=== PATIENT | female | born 1940 | race Caucasian/White ===

== ENCOUNTER 2017-01-02 02:11 | Inpatient (IN) | payer MEDICARE, BC ==
--- NOTE | 2017-01-02 05:39 | EDM.PDOC ---
ED HPI GENERAL MEDICAL PROBLEM - General Chief Complaint: General Stated Complaint: MEDICAL VIA NORTH Time Seen by Provider: 01/02/17 02:50 Source of Information: Reports: Patient History Limitations: Reports: No Limitations - History of Present Illness INITIAL COMMENTS - FREE TEXT/NARRATIVE: History of present illness: [76-year-old female presents with her and daughter with a history of progressive weakness over the last several months. She also has a history of M nire's disease. Last week they went to the [facility] and saw a physician that ordered an MRI which was done in the mid . on Monday. I have those results. This was done and ordered because of the progressive weakness and the desire for the family to not Y. this was happening and whether not she had had or was having mini strokes. She does have a history of an aneurysm that was coiled at the [facility]. She's had no fevers or chills cough or cold symptoms nausea vomiting constipation diarrhea or dysuria. The event that prompted her coming in a curb earlier this morning when she got up to go to the bathroom was having trouble and her daughter tried to assist her but her left leg was so weak that she couldn't bear weight and so her daughter just laid her down on the floor and called the ambulance. Her and daughter who have been trying to help her and care for her feel that in her present condition and weakness they can no longer safely do so at home.] Review of systems: As per history of present illness and below otherwise all systems reviewed and negative. Past medical history: As per history of present illness and as reviewed below otherwise noncontributory. Surgical history: As per history of present illness and as reviewed below otherwise noncontributory. Social history: No reported history of drug or alcohol abuse. Family history: As per history of present illness and as reviewed below otherwise noncontributory. Physical exam: HEENT: Atraumatic, normocephalic, pupils reactive, negative for conjunctival pallor or scleral icterus, mucous membranes moist, throat clear, neck supple, nontender, trachea midline. Lungs: Clear to auscultation, breath sounds equal bilaterally, chest nontender. Heart: S1S2, regular, negative for clicks, rubs, or JVD. Abdomen: Soft, nondistended, nontender. Negative for masses or hepatosplenomegaly. Negative for costovertebral tenderness. Pelvis: Stable nontender. Genitourinary: Deferred. Rectal: Deferred. Extremities: Atraumatic, negative for cords or calf pain. Neurovascular unremarkable. Neuro: Awake, alert, oriented. significant neuro exam is an upgoing Babinski of her left lower extremity. Her speech also seems cavity and the family reports that sometimes it is slurred but that is intermittent. she is able to lift her left leg off the bed as well as the right but the left one is weaker. She has no facial asymmetry and no pronator drift. Diagnostics: [the MRI report from Monday shows that there are punctate foci of diffusion restriction in the right basal ganglia, right periventricular white matter and within the anterior right temporal lobe compatible with acute/subacute infarcts. Also noted is the aneurysm coil in the left suprasellar region. I did do a head CT while she was here and nothing acute was discovered and no intracranial bleed. EKG shows a sinus rhythm with no current of ischemia or injury and a rate of 93.] Therapeutics: [] Impression: [recent CVA seen on MRI. Generalized weakness Acute left lower extremity weakness] Plan: [discussed with Dr. Arnett and we will admit her to the medical surgical floor and he'll come and see her shortly.] Definitive disposition and diagnosis as appropriate pending reevaluation and review of above. 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 Cardiovascular History: Reports: High Cholesterol, Hypertension Gastrointestinal History: Reports: Other (See Below) Other Gastrointestinal History: tubular adenoma of colon with mild dyplasia in 05/2011 ADJUNCT FACULTY History: Reports: Neurological History: Reports: Brain Injury, Other (See Below) Other Neuro History: minnear's anuerysm in brain. Coil behind l eye 2000 - Infectious Disease History Infectious Disease History: Reports: C-Difficile - Past Surgical History Oncologic Surgical History: Reports: Other (See Below) Other Oncologic Surgeries/Procedures: tubular adenoma of colon-with mild dyslasia in 05/2011 Social & Family History - Tobacco Use Smoking Status *Q: Former Smoker Years of Tobacco use: 30 Packs/Tins Daily: 0.5 Used Tobacco, but Quit: Yes Month Tobacco Last Used: December Tobacco Use Comment: Quit in 1996 Second Hand Smoke Exposure: No - Caffeine Use Caffeine Use: Reports: Coffee, Soda, Tea - Recreational Drug Use Recreational Drug Use: No ED ROS GENERAL - Review of Systems Review Of Systems: ROS reveals no pertinent complaints other than HPI. ED EXAM, GENERAL - Physical Exam Exam: See Below Course - Vital Signs Last Recorded V/S: Last Vital Signs Temp 36.5 C 01/02/17 02:24 Pulse 109 H 01/02/17 02:24 Resp 16 01/02/17 02:24 BP 166/94 H 01/02/17 02:24 Pulse Ox 94 L 01/02/17 02:24 - Orders/Labs/Meds Orders: Active Orders 24 hr Category Date Time Status Patient Status [ADT] Routine ADT 01/02/17 05:21 Ordered EKG Documentation Completion [RC] ASDIRECTED Care 01/02/17 03:04 Active Neuro Check [RC] Q2HR Care 01/02/17 05:30 Ordered Oxygen Therapy [RC] PRN Care 01/02/17 05:21 Ordered VTE/DVT Education [RC] Per Unit Routine Care 01/02/17 05:21 Ordered Vital Signs [RC] Q4H Care 01/02/17 05:21 Ordered Head wo Cont [CT] Stat Exams 01/02/17 03:48 Taken Dextrose 5%-1/2 Normal Saline @ 100 MLS/HR(1000ml) Med 01/02/17 05:45 Ordered Dextrose 5%-0.45% NaCl [Dextrose 5%-1/2 NS] 1,000 ml IV ASDIRECTED Resuscitation Status Routine Resus Stat 01/02/17 05:21 Ordered EKG 12 Lead [EK] Stat Ther 01/02/17 03:04 Ordered Labs: Laboratory Tests 01/02/17 01/02/17 01/02/17 Range/Units 03:04 03:04 03:04 WBC 8.8 (4.5-11.0) K/uL RBC 4.19 (3.30-5.50) M/uL Hgb 13.5 (12.0-15.0) g/dL Hct 40.7 (36.0-48.0) % MCV 97 (80-98) fL MCH 32 H (27-31) pg MCHC 33 (32-36) % Plt Count 347 (150-400) K/uL Neut % (Auto) 58 (36-66) % Lymph % (Auto) 28 (24-44) % [place] % (Auto) 11 H (2-6) % Eos % (Auto) 2 (2-4) % Baso % (Auto) 1 (0-1) % PT 10.2 (9.5-12.0) sec INR 0.96 (0.80-1.20) Sodium 139 L (140-148) mmol/L Potassium 4.1 (3.6-5.2) mmol/L Chloride 103 (100-108) mmol/L Carbon Dioxide 27 (21-32) mmol/L Anion Gap 13.1 (5.0-14.0) mmol/L BUN 23 H (7-18) mg/dL Creatinine 0.9 (0.6-1.0) mg/dL Est Cr Clr Drug Dosing 45.66 mL/min Estimated GFR (MDRD) > 60 (>60) Glucose 129 H (74-106) mg/dL Calcium 9.1 (8.5-10.1) mg/dL Total Bilirubin 0.4 (0.2-1.0) mg/dL AST 19 (15-37) U/L ALT 22 (12-78) U/L Alkaline Phosphatase 59 (46-116) U/L Troponin I < 0.017 (0.000-0.056) ng/mL Total Protein 7.4 (6.4-8.2) g/dL Albumin 3.5 (3.4-5.0) g/dL Globulin 3.9 H (2.3-3.5) g/dL Albumin/Globulin Ratio 0.9 L (1.2-2.2) TSH, Ultra Sensitive 1.969 (0.358-3.740) uIU/mL Urine Color Urine Appearance Urine pH (4.5-8.0) Ur Specific [place] (1.008-1.030) Urine Protein (NEGATIVE) mg/dL Urine Glucose (UA) (NEGATIVE) mg/dL Urine Ketones (NEGATIVE) mg/dL Urine Occult Blood (NEGATIVE) Urine Nitrite (NEGATIVE) Urine Bilirubin (NEGATIVE) Urine Urobilinogen (NORMAL) mg/dL Ur Leukocyte Esterase (NEGATIVE) Urine RBC (0-5) Urine WBC (0-5) Ur Epithelial Cells Amorphous Sediment Urine Bacteria Urine Mucus Urine Other 01/02/17 Range/Units 04:13 WBC (4.5-11.0) K/uL RBC (3.30-5.50) M/uL Hgb (12.0-15.0) g/dL Hct (36.0-48.0) % MCV (80-98) fL MCH (27-31) pg MCHC (32-36) % Plt Count (150-400) K/uL Neut % (Auto) (36-66) % Lymph % (Auto) (24-44) % [place] % (Auto) (2-6) % Eos % (Auto) (2-4) % Baso % (Auto) (0-1) % PT (9.5-12.0) sec INR (0.80-1.20) Sodium (140-148) mmol/L Potassium (3.6-5.2) mmol/L Chloride (100-108) mmol/L Carbon Dioxide (21-32) mmol/L Anion Gap (5.0-14.0) mmol/L BUN (7-18) mg/dL Creatinine (0.6-1.0) mg/dL Est Cr Clr Drug Dosing mL/min Estimated GFR (MDRD) (>60) Glucose (74-106) mg/dL Calcium (8.5-10.1) mg/dL Total Bilirubin (0.2-1.0) mg/dL AST (15-37) U/L ALT (12-78) U/L Alkaline Phosphatase (46-116) U/L Troponin I (0.000-0.056) ng/mL Total Protein (6.4-8.2) g/dL Albumin (3.4-5.0) g/dL Globulin (2.3-3.5) g/dL Albumin/Globulin Ratio (1.2-2.2) TSH, Ultra Sensitive (0.358-3.740) uIU/mL Urine Color Yellow Urine Appearance Cloudy Urine pH 5.0 (4.5-8.0) Ur Specific [place] 1.015 (1.008-1.030) Urine Protein Negative (NEGATIVE) mg/dL Urine Glucose (UA) Normal (NEGATIVE) mg/dL Urine Ketones Negative (NEGATIVE) mg/dL Urine Occult Blood Moderate (NEGATIVE) Urine Nitrite Negative (NEGATIVE) Urine Bilirubin Negative (NEGATIVE) Urine Urobilinogen Normal (NORMAL) mg/dL Ur Leukocyte Esterase Negative (NEGATIVE) Urine RBC 10-20 H (0-5) Urine WBC 0-5 (0-5) Ur Epithelial Cells Moderate Amorphous Sediment Few Urine Bacteria Few Urine Mucus Moderate Urine Other See note Departure - Departure Time of Disposition: 05:39 Disposition: Admitted As Inpatient 66 Condition: fair Clinical Impression: Generalized weakness, Weakness of left lower extremity CVA (cerebral vascular accident) Qualifiers: CVA mechanism: unspecified Qualified Code(s): I63.9 - Cerebral infarction, unspecified - Discharge Information Forms: ED Department Discharge - My Orders Last 24 Hours: My Active Orders 01/02/17 03:04 EKG Documentation Completion [RC] ASDIRECTED EKG 12 Lead [EK] Stat 01/02/17 03:48 Head wo Cont [CT] Stat 01/02/17 05:21 Patient Status [ADT] Routine Oxygen Therapy [RC] PRN VTE/DVT Education [RC] Per Unit Routine Vital Signs [RC] Q4H Resuscitation Status Routine 01/02/17 05:30 Neuro Check [RC] Q2HR 01/02/17 05:45 Dextrose 5%-1/2 Normal Saline @ 100 MLS/HR(1000ml) Dextrose 5%-0.45% NaCl [ Dextrose 5%-1/2 NS] 1,000 ml IV ASDIRECTED - Assessment/Plan Last 24 Hours: My Active Orders 01/02/17 03:04 EKG Documentation Completion [RC] ASDIRECTED EKG 12 Lead [EK] Stat 01/02/17 03:48 Head wo Cont [CT] Stat 01/02/17 05:21 Patient Status [ADT] Routine Oxygen Therapy [RC] PRN VTE/DVT Education [RC] Per Unit Routine Vital Signs [RC] Q4H Resuscitation Status Routine 01/02/17 05:30 Neuro Check [RC] Q2HR 01/02/17 05:45 Dextrose 5%-1/2 Normal Saline @ 100 MLS/HR(1000ml) Dextrose 5%-0.45% NaCl [ Dextrose 5%-1/2 NS] 1,000 ml IV ASDIRECTED
[2017-01-02] MEDS: Dextrose 5%-0.45% NaCl 1,000 ML IV SCH ×2 (06:21→17:27)
[2017-01-02] MEDS: Metoprolol Succinate 50 MG Tab.ER PO SCH (09:20)
[2017-01-02] MEDS: Aspirin 81 MG Tab.Chew PO SCH (09:20)
[2017-01-02] MEDS: Hydrochlorothiazide 25 MG Tab PO SCH (09:20)
--- NOTE | 2017-01-02 14:42 | US ---
Renal Comp INDICATION: microscopic hematuria FINDINGS: The right kidney measures 9.4 cm in length and the left kidney measures 10.7 cm in length. No evidence for mass or hydronephrosis. There is mild bilateral renal cortical thinning, measuring 1.0 cm in the right and 1.1 cm on the left. Survey views of the bladder are unremarkable. IMPRESSION: Mild bilateral renal cortical thinning.
--- NOTE | 2017-01-02 20:27 | HP ---
IDENTIFYING DATA: Ms. Gaby Espinal is a 76-year-old female from [place]. CHIEF COMPLAINT: Progressive weakness. HISTORY OF PRESENT ILLNESS: This elderly female was delivered to the emergency department by ambulance this evening at the request of family. They report an approximate 2-year history of progressive weakness as well as some cognitive slowing and periods of short-term memory loss this evening while attempting to rise and ambulate to the bathroom. She noted more significant weakness in the left leg and was assisted to the floor by family. She was unable to rise and ambulate, therefore emergency services were contacted. She does report a longstanding history of Meniere's disease. 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 She had no accompanying neurologic sequela. Recently with memory loss and developing weakness, she was seen by a local primary caregiver at the [facility]. Labs were drawn. She was notified she had an elevated cholesterol and was prescribed hydrochlorothiazide as well as atorvastatin. She has not yet initiated her pharmacologic therapy. Additionally, MR imaging of the head was obtained late last week. She had not yet received notification of findings, however, review at this time reveals multi-lacunar infarct changes described in the right basal ganglia, right periventricular white matter, and in the right temporal lobe, suggesting acute versus subacute infarct changes. She currently is ambulating independently with the use of a cane or a walker. She is having difficulty ascending and descending stairs, therefore family is in the process of building a single-level handicapped accessible home, and anticipates sale of their multilevel home. She currently does not drive. Family provides assistance with showering, dressing, and meal preparation. She has had no agitation, belligerent behavior, or personality changes reported. PAST MEDICAL HISTORY: Reported history of hypertension with previous use of antihypertensive therapies. PREVIOUS SURGERIES: Include total abdominal hysterectomy with bilateral salpingo- oophorectomy in the remote past for benign disease as well as bilateral cataract extraction, and placement of an intra-arterial coil for an intercerebral aneurysm previously noted. ALLERGIES: REPORTED TO AMOXICILLIN AND CEFRADINE. MEDICATIONS: None currently. Hydrochlorothiazide 1 tablet daily and atorvastatin 20 mg daily have been ordered but not yet initiated. HABITS: Nonsmoker. No current alcohol use. Remote history of tobacco use abstaining for greater than 30 years' time. Caffeine intake is typically nil. Drinking water with meals. SOCIAL HISTORY: She and her are retired. 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 Family including daughter and provide assistance as needed. FAMILY HISTORY: Denies familial history of COMPUTATIONAL CHEMIST disease, stroke, seizures, or recognized aneurysms. REVIEW OF SYSTEMS: NEUROLOGIC: No hearing loss. 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. No history of seizures or chronic headaches. CARDIAC: History of hypertension, reportedly hyperlipidemia, although not yet confirmed by lab. No history of documented ischemic heart disease, chest pain, palpitations, syncope, or congestive heart failure. RESPIRATORY: Denies asthma, emphysema, chronic cough, sputum production, or recent URIs. GI: Dyspeptic symptoms are managed with p.r.n. use of Gaviscon or Tums. No history of hepatitis, jaundice, melena, or hematochezia. Constipation requires p.r.n. use of MiraLAX and docusate. : Incontinent of urine. She does wear adult diapers. MUSCULOSKELETAL: Without complaints of arthralgias. PHYSICAL EXAMINATION: GENERAL: Appearance is that of an elderly female, resting comfortably in bed. VITAL SIGNS: Initial vitals, temperature 36.5 degrees centigrade, pulse 109 and regular, respiratory rate 16, blood pressure 166/94, O2 saturations 94% on room air. HEENT: Hearing is intact. Canals and TMs are normal. Extraocular eye movements are symmetrical and without nystagmus. She has no visual field deficits. No nasal congestion. Speech is slightly slurred. No asymmetries. No oropharyngeal lesions. Tongue protrudes midline. NECK: Brisk carotid pulses, radiating aortic murmur. No JVD, adenopathy, nuchal rigidity, or stridor. LUNGS: Clear and non-tachypneic. Symmetrical aeration. HEART: Regular without gallops. Grade 1 to 2 outflow murmur at the aortic area noted. ABDOMEN: Soft and nontender. No organomegaly. Active sounds. Good femoral pulses. No abdominal bruits. No CVA pain. AND RECTAL: Omitted. EXTREMITIES: Symmetrical strength in the upper and lower extremities. No tremor. Biceps and patellar DTRs are symmetrical. No ischemic skin changes. SKIN: Intact. LABORATORY DATA: On admission, WBC 8.8, hemoglobin 13.5, platelet count 347,000 with 58 segs, 28 lymphocytes, and 11 monos. INR within normal range at 0.96. Sodium 139, potassium 4.1, BUN 23, creatinine 0.9, glucose 129, calcium 9.1. Alkaline phosphatase 59, AST 19. Troponin less than 0.017. TSH of 1.97. Urinalysis 10-20 rbc's, 0-5 wbc's, few bacteria. IMPRESSIONS: 1. Presentation with increasing weakness, slowly progressive course of 2 years' time. Family note accompanying periods of confusion and short-term memory loss, more pronounced left leg weakness, now recovered. 2. History of hypertension. 3. Reported hyperlipidemia without therapy initiated. PLAN: The patient is admitted for ongoing supportive care and evaluation. Rehab assessment by PT, OT, and speech therapy services are requested. Incidentally note, family reports occasional coughing or choking with the ingestion of thin liquids. We will provide rehab services as indicated. Full code status is instituted as per request of the patient and family. We will provide bland diet as tolerated. In light of noted microscopic hematuria, renal ultrasound is requested. We will initiate pharmacologic therapies including aspirin, antiplatelet therapies, atorvastatin 20 mg daily, hydrochlorothiazide 25 mg daily, and metoprolol 50 mg daily for hypertensive presentation. Anticipate stay of less than 72 hours. Family is anticipating return home. They are agreeable to home care assistance if necessary. Silviano Arnett MD /[id number]
[2017-01-02] MEDS ORDERED: atorvaSTATin 20 MG Tab PO SCH (21:00)
[2017-01-03] MEDS: Dextrose 5%-0.45% NaCl 1,000 ML IV SCH (02:46)
[2017-01-03] MEDS: Aspirin 81 MG Tab.Chew PO SCH (09:19)
[2017-01-03] MEDS: Hydrochlorothiazide 25 MG Tab PO SCH (09:20)
[2017-01-03] MEDS: Metoprolol Succinate 50 MG Tab.ER PO SCH (09:20)
[2017-01-03 11:10] VITALS: BP 135/73
--- NOTE | 2017-01-03 11:59 | PCM.DCSUM1 ---
Discharge Summary - Hospital Course Brief History: Ms. Espinal is a 76-year-old woman who was admitted for further evaluation and management of subacute CVA. - Discharge Data Discharge Date: 01/03/17 Discharge Disposition: DC/Tfer to Inpt Rehab Fac 62 Condition: Fair - Discharge Diagnosis/Problem(s) (1) CVA (cerebral vascular accident) SNOMED Code(s): 684159604 ICD Code: I63.9 - CEREBRAL INFARCTION, UNSPECIFIED Status: Acute Current Visit: Yes Qualifiers: CVA mechanism: unspecified Qualified Code(s): I63.9 - Cerebral infarction, unspecified (2) Generalized weakness SNOMED Code(s): 63348438 ICD Code: R53.1 - WEAKNESS Status: Acute Current Visit: Yes - Patient Summary/Data Consults: Consultations 01/02/17 07:53 OT Evaluation and Treatment [CONS] Routine Please Evaluate and Treat. OT Reason for Consult: Strengthening This query below is only for informational purposes and is not editable. Admission Diagnosis/Problem: Weakness PT Evaluation and Treatment [CONS] Routine Please Evaluate and Treat. PT Reason for Consult: Strengthening This query below is only for informational purposes and is not editable. Admission Diagnosis/Problem: Weakness AUDITING SPECIALIST Evaluation and Treatment [CONS] Routine Please Evaluate and Treat AUDITING SPECIALIST Reason for Consult: Swallow This query below is only for informational purposes and is not editable. Admission Diagnosis/Problem: Weakness Hospital Course: Ms. Espinal has had a history of progressive decline over the past several months with increased weakness and progressive cognitive impairment. Family noted more progressive left leg weakness and she was brought in to the emergency department for further evaluation. Should recently been seen by her primary care provider and started on a statin as well as hydrochlorothiazide, at the time of admission had not started these medications. Previous MRI obtained within the past few days prior to admission showed evidence of several lacunar infarcts as well as evidence of atrophy and a subacute right CVA. CT scan obtained at the time of admission showed no acute abnormalities. She was admitted to the hospital and given IV fluids for hydration, started on aspirin, and seen by physical therapy. She was felt to be an appropriate candidate for acute rehabilitation and will be transferred there at the time of discharge. Activity will be as tolerated and she will be on a low-sodium diet. Follow-up appointment will be scheduled with her primary care provider in 2 weeks as well as a neurology consult for follow-up of her cerebral vascular disease. - Patient Instructions Diet: Low Sodium Activity: As Tolerated Other/Special Instructions: Discharge to acute rehabilitation facility, family will transport. Schedule follow-up appointment with primary care provider in 2 weeks. Schedule neurology consult for follow-up of CVA. - Discharge Plan Home Medications: Home Meds atorvaSTATin [Lipitor] 20 mg PO ONETIME 01/02/17 [History] Aspirin 81 mg PO DAILY tab.chew 01/03/17 [Rx] Metoprolol Succinate [Toprol XL] 50 mg PO DAILY tab.er 01/03/17 [Rx] - Patient Data Vitals - Most Recent: Last Vital Signs Temp 98.2 F 01/03/17 11:07 Pulse 77 01/03/17 11:07 Resp 20 01/03/17 11:07 BP 135/73 01/03/17 11:07 Pulse Ox 97 01/03/17 11:07 Weight - Most Recent: 186 lb 6.413 oz I&O - Last 24 hours: Intake & Output 01/02/17 01/03/17 01/03/17 22:59 06:59 14:59 Intake Total 1102 320 Balance 1102 320 Med Orders - Current: Current Medications Aspirin (Aspirin) 81 mg PO DAILY [facility] Last Admin: 01/03/17 09:19 Dose: 81 mg Atorvastatin Calcium (Lipitor) 20 mg PO BEDTIME [facility] Last Admin: 01/02/17 20:07 Dose: 20 mg Hydrochlorothiazide (Hydrochlorothiazide) 25 mg PO DAILY [facility] Last Admin: 01/03/17 09:20 Dose: 25 mg Dextrose/Sodium Chloride (Dextrose 5%-1/2 Ns) 1,000 mls @ 100 mls/hr IV ASDIRECTED [facility] Last Admin: 01/03/17 02:46 Dose: 100 mls/hr Metoprolol Succinate (Toprol Xl) 50 mg PO DAILY [facility] Last Admin: 01/03/17 09:20 Dose: 50 mg *Q Meaningful Use (DIS) - VTE *Q VTE Criteria *Q: - Stroke *Q Stroke Criteria *Q: - AMI *Q AMI Criteria *Q:
== END 2017-01-03 13:58 | DRG 66 ==
LOC: JP.ED 02:11 → JP.MS 05:21
PROVIDERS: ADMIT Family Medicine; ATTEND Hospitalist
DX: I63.9 Cerebral infarction, unspecified (principal); R53.1 Weakness; I10 Essential (primary) hypertension; R31.29 Other microscopic hematuria; Z87.891 Personal history of nicotine dependence; H54.7 Unspecified visual loss; H81.09 Meniere's disease, unspecified ear; E78.5 Hyperlipidemia, unspecified; Z79.82 Long term (current) use of aspirin; Z88.1 Allergy status to other antibiotic agents; H91.92 Unspecified hearing loss, left ear; I72.8 Aneurysm of other specified arteries
CPT/HCPCS: 36415; 70450; 76770; 76770-26; 80053; 81001; 84443; 84484; 85025; 85610; 92610-GN; 93005; 93010; 97116-GP; 97162-GP; 97166-GO; 99284; 99285-25; A9270-GY

== ENCOUNTER 2017-05-02 10:32 | Inpatient (IN) | payer MEDICARE, BC ==
--- NOTE | 2017-05-02 11:12 | EDM.PDOC ---
ED HPI GENERAL MEDICAL PROBLEM - General Chief Complaint: Back Pain or Injury Stated Complaint: FALL VIA [place]TH Time Seen by Provider: 05/02/17 10:50 Source of Information: Reports: Patient, EMS, Family History Limitations: Reports: No Limitations - History of Present Illness INITIAL COMMENTS - FREE TEXT/NARRATIVE: 77-year-old female who had a CVA earlier this summer lost her balance and stumbled backwards landing on her sacral area and lower back. She has significant discomfort upper mid lumbar spine. She was able to get up with assistance but was so tender they wanted her evaluated, home health called the ambulance. No lower extremity symptoms, head injury or other complaints. Quality: Reports: Ache, Stabbing Severity: Moderate Worsens with: Reports: Movement Associated Symptoms: Reports: No Other Symptoms Lower Back Pain Score (Numeric/FACES): 2 - Related Data Allergies Allergy/AdvReac Type Severity Reaction Status Date / Time amoxicillin Allergy Rash Verified 01/02/17 02:27 cephradine Allergy Rash Verified 01/02/17 02:27 Home Meds: Home Meds atorvaSTATin [Lipitor] 20 mg PO ONETIME 01/02/17 [History] Aspirin 81 mg PO DAILY tab.chew 01/03/17 [Rx] Metoprolol Succinate [Toprol XL] 50 mg PO DAILY tab.er 01/03/17 [Rx] Carbidopa/Levodopa [Sinemet 25-100 mg Tablet] 1 tab PO QID 05/02/17 [History] Cholecalciferol (Vitamin D3) [Vitamin D] 2,000 unit PO DAILY 05/02/17 [History] Omeprazole 20 mg PO BIDAC 05/02/17 [History] Past Medical History HEENT History: Reports: Impaired Vision, Other (See Below) 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 Psychiatric History: Reports: None Endocrine/Metabolic History: Reports: None Hematologic History: Reports: None Immunologic History: Reports: None Dermatologic History: Reports: None - Infectious Disease History Infectious Disease History: Reports: Chicken Pox, Measles, Mumps - Past Surgical History Head Surgeries/Procedures: Reports: None HEENT Surgical History: Reports: Eye Surgery GI Surgical History: Reports: Colonoscopy Female Surgical History: Reports: Hysterectomy, Oophorectomy Oncologic Surgical History: Reports: Other (See Below) Other Oncologic Surgeries/Procedures: tubular adenoma of colon-with mild dyslasia in 05/2011 Social & Family History - Tobacco Use Smoking Status *Q: Never Smoker Years of Tobacco use: 30 Packs/Tins Daily: 0.5 Used Tobacco, but Quit: No Month Tobacco Last Used: December Second Hand Smoke Exposure: No - Caffeine Use Caffeine Use: Reports: None - Recreational Drug Use Recreational Drug Use: No ED ROS GENERAL - Review of Systems Review Of Systems: See Below Constitutional: Denies: Fever, Chills Respiratory: Denies: Shortness of Breath Cardiovascular: Denies: Chest Pain GI/Abdominal: Denies: Abdominal Pain, Nausea, Vomiting : Reports: Incontinence (Not a new symptom) Neurological: Reports: Other (Has some fairly significant persistent weakness secondary to the stroke earlier this year) ED EXAM,LOWER BACK PAIN/INJURY - Physical Exam Exam: See Below Exam Limited By: No Limitations General Appearance: Alert, No Apparent Distress Eye Exam: Bilateral Eye: EOMI Respiratory/Chest: No Respiratory Distress, Lungs Clear GI/Abdominal: Soft, Non-Tender Back Exam: Other (Patient was log rolled in the lower back and sacral area looks normal on gross exam. On palpation and percussion she reacts with tenderness over L2 to L4, no pain over the sacrum or pelvis area) Course - Vital Signs Last Recorded V/S: Last Vital Signs Temp 96.6 F 05/02/17 13:54 Pulse 59 L 05/02/17 13:54 Resp 16 05/02/17 13:54 BP 138/59 L 05/02/17 13:54 Pulse Ox 98 05/02/17 13:54 - Orders/Labs/Meds Orders: Active Orders 24 hr Category Date Time Status Sodium Chloride 0.9% [Saline Flush] Med 05/02/17 12:30 Active 10 ml FLUSH ASDIRECTED PRN Peripheral IV Insertion Adult [OM.PC] Routine Oth 05/02/17 12:30 Ordered Medication Orders Acetaminophen (Tylenol Extra Strength) 1,000 mg PO TID SWATHI Aspirin (Aspirin) 81 mg PO DAILY [facility] Atorvastatin Calcium (Lipitor) 20 mg PO BEDTIME [facility] Calcitonin [place] (Miacalcin Nasal [place]) 1 ml VEENA DAILY [facility] Carbidopa/Levodopa (Sinemet 25-100 Mg) 1 tab PO QID [facility] Hydromorphone HCl (Dilaudid) 0.25 - 0.5 mg IVPUSH Q2H PRN PRN Reason: Pain (severe 7-10) Ibuprofen (Motrin) 600 mg PO Q6H PRN PRN Reason: Pain/Fever Influenza Virus Vaccine (Fluzone High-Dose ) 180 mcg IM .ONCE ONE Stop: 05/03/17 16:01 Metoprolol Succinate (Toprol Xl) 50 mg PO DAILY [facility] Ondansetron HCl (Zofran Odt) 4 mg PO Q6H PRN PRN Reason: Nausea able to take PO Oxycodone HCl (Oxycodone) 5 - 10 mg PO Q4H PRN PRN Reason: Pain (moderate 4-6) Pantoprazole Sodium (Protonix) 40 mg PO ACBREAKFAST [facility] Polyethylene Glycol (Miralax) 17 gm PO DAILY PRN PRN Reason: Constipation Senna/Docusate Sodium (Senna Plus) 1 tab PO BID PRN PRN Reason: Constipation Sodium Chloride (Saline Flush) 10 ml FLUSH ASDIRECTED PRN PRN Reason: Keep Vein Open Last Admin: 05/02/17 12:43 Dose: 10 ml Admin: 05/02/17 12:41 Dose: 10 ml Meds: Medications Generic Name Dose Route Start Last Admin Trade Name Freq PRN Reason Stop Dose Admin Acetaminophen 1,000 mg 05/02/17 14:00 Tylenol Extra Strength PO TID [facility] Aspirin 81 mg 05/03/17 09:00 Aspirin PO DAILY [facility] Atorvastatin Calcium 20 mg 05/02/17 21:00 Lipitor PO BEDTIME [facility] Calcitonin [place] 1 ml 05/02/17 16:00 Miacalcin Nasal [place] VEENA DAILY [facility] Carbidopa/Levodopa 1 tab 05/02/17 16:00 Sinemet 25-100 Mg PO QID [facility] Hydromorphone HCl 0.25 - 0.5 mg 05/02/17 13:28 Dilaudid IVPUSH Q2H PRN Pain (severe 7-10) Ibuprofen 600 mg 05/02/17 13:28 Motrin PO Q6H PRN Pain/Fever Influenza Virus Vaccine 180 mcg 05/03/17 16:00 Fluzone High-Dose 2017-18 IM 05/03/17 16:01 .ONCE ONE Metoprolol Succinate 50 mg 05/03/17 09:00 Toprol Xl PO DAILY SWATHI Ondansetron HCl 4 mg 05/02/17 13:28 Zofran Odt PO Q6H PRN Nausea able to take PO Oxycodone HCl 5 - 10 mg 05/02/17 13:28 Oxycodone PO Q4H PRN Pain (moderate 4-6) Pantoprazole Sodium 40 mg 05/03/17 07:30 Protonix PO ACBREAKFAST SWATHI Polyethylene Glycol 17 gm 05/02/17 13:28 Miralax PO DAILY PRN Constipation Senna/Docusate Sodium 1 tab 05/02/17 13:28 Senna Plus PO BID PRN Constipation Sodium Chloride 10 ml 05/02/17 12:30 05/02/17 12:43 Saline Flush FLUSH 10 ml ASDIRECTED PRN Administration Keep Vein Open Discontinued Medications Generic Name Dose Route Start Last Admin Trade Name Freq PRN Reason Stop Dose Admin Hydrocodone Bitart/Acetaminophen 1 tab 05/02/17 11:36 05/02/17 11:45 [place] 325-10 Mg PO 05/02/17 11:37 1 tab ONETIME ONE Administration Ketorolac Tromethamine 30 mg 05/02/17 12:31 05/02/17 12:40 Toradol IVPUSH 05/02/17 12:32 30 mg ONETIME ONE Administration - Re-Assessments/Exams Free Text/Narrative Re-Assessment/Exam: 05/02/17 11:11 With him on her discomfort the patient is having, and the amount of reassurance the family needs after her stroke the patient will have a lumbar spine CT to look for subtle or compression fractures. 05/02/17 11:37 CT scan confirmed an L1 compression fracture which correlates with her pain. She was able to stand with assistance and walk with a walker although it was uncomfortable. She really wants to go home. She was given a 10 mg hydrocodone orally, along with an instymed for 20 additional 5 mg [place] doses to take one every 3-4 hours. She is to increase activity as tolerated and return if not managing at home. I also think a recheck in 5-10 days with her primary care to discuss possible physical therapy or other methods of treatment. 05/02/17 12:05 Patient attempted to go home but her symptoms were to significant and the family decided they wanted her to stay for inpatient treatment. I called Dr. Erwin and he agreed to see her to consider admission to the hospitalist service for pain control and physical therapy evaluation. Departure - Departure Time of Disposition: 13:48 Disposition: Admitted As Inpatient 67 Condition: Fair Clinical Impression: Compression fx, lumbar spine Qualifiers: Encounter type: initial encounter Lumbar vertebra fracture level: L1 Fracture type: closed Qualified Code(s): S32.010A - Wedge compression fracture of first lumbar vertebra, initial encounter for closed fracture - Discharge Information
--- NOTE | 2017-05-02 11:21 | CT ---
Lumbar spine CT. History: Fall. Pain. Technique: Axial images were obtained through the lumbar spine. Sagittal and coronal images were sabine nstructed. Total DLP: 816. Findings: There is a compression fracture of L1. There is approximately 10% vertebral height loss. Th ere are no retropulsed fragments. There are no prior studies to assess for chronicity. An acute injur y cannot be excluded. There are no additional compressions. There is grade 1 spondylolisthesis at L4/5. There is a annular disc bulge and facet arthropathy. Mode rate bilateral foraminal stenosis is demonstrated. Impression: 1. L1 compression fracture of indeterminate age. If there is localized pain the finding is likely acu te. 2. L4/5 spondylolisthesis with degenerative facet arthropathy. There is moderate bilateral foraminal stenosis.
[2017-05-02] MEDS ORDERED: Acetaminophen/HYDROcodone 325-10 MG Tab PO ONE (11:36)
[2017-05-02] MEDS ORDERED: Ketorolac 30 MG/ML SDV IVPUSH ONE (12:31)
[2017-05-02] MEDS: Sodium Chloride 0.9% 10 ML Syringe FLUSH PRN ×2 (12:41→12:43)
--- NOTE | 2017-05-02 12:49 | PCM.HP ---
H&P History of Present Illness - General Date of Service: 05/02/17 Admit Problem/Dx: Admission Diagnosis/Problem Admission Diagnosis/Problem Compression fracture of L1 lumbar vertebra Source of Information: Patient, Family, Provider History Limitations: Reports: No Limitations - History of Present Illness Initial Comments - Free Text/Narative: Gaby presents to the emergency room today with acute lower back pain. She reports that she stumbled and fell landing on her on X resulting in immediate and severe lower back pain. She describes this as an achy pain that radiates throughout her lower back but does not radiate down the legs. Pain is worse with any movement and better with rest. Pain medication in the emergency room has not provided much benefit though the pain is somewhat less intense than when the incident initially occurred. She is able to wiggle her toes and does not have paresthesias of either lower extremity. She has felt like her usual self recently with no fevers, no abdominal pain, no shortness of breath. She has been getting around without a walker or cane recently. Workup in the emergency room revealed a 10% compression fracture of L1. The patient was not able to ambulate without severe pain and will be admitted for pain control. Lower Back Pain Score (Numeric/FACES): 2 - Related Data Allergies/Adverse Reactions: Allergies Allergy/AdvReac Type Severity Reaction Status Date / Time amoxicillin Allergy Rash Verified 01/02/17 02:27 cephradine Allergy Rash Verified 01/02/17 02:27 Home Medications: Home Meds atorvaSTATin [Lipitor] 20 mg PO ONETIME 01/02/17 [History] Aspirin 81 mg PO DAILY tab.chew 01/03/17 [Rx] Metoprolol Succinate [Toprol XL] 50 mg PO DAILY tab.er 01/03/17 [Rx] Carbidopa/Levodopa [Sinemet 25-100 mg Tablet] 1 tab PO QID 05/02/17 [History] Cholecalciferol (Vitamin D3) [Vitamin D] 2,000 unit PO DAILY 05/02/17 [History] Omeprazole 20 mg PO BIDAC 05/02/17 [History] Past Medical History HEENT History: Reports: Impaired Vision, Other (See Below) 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 Psychiatric History: Reports: None Endocrine/Metabolic History: Reports: None Hematologic History: Reports: None Immunologic History: Reports: None Dermatologic History: Reports: None - Infectious Disease History Infectious Disease History: Reports: Chicken Pox, Measles, Mumps - Past Surgical History Head Surgeries/Procedures: Reports: None HEENT Surgical History: Reports: Eye Surgery GI Surgical History: Reports: Colonoscopy Female Surgical History: Reports: Hysterectomy, Oophorectomy Oncologic Surgical History: Reports: Other (See Below) Other Oncologic Surgeries/Procedures: tubular adenoma of colon-with mild dyslasia in 05/2011 Social & Family History - Family History Cardiac: Denies: CAD - Tobacco Use Smoking Status *Q: Never Smoker Years of Tobacco use: 30 Packs/Tins Daily: 0.5 Used Tobacco, but Quit: No Month Tobacco Last Used: December Second Hand Smoke Exposure: No - Caffeine Use Caffeine Use: Reports: None - Alcohol Use Alcohol Use History: No - Recreational Drug Use Recreational Drug Use: No H&P Review of Systems - Review of Systems: Review Of Systems: See Below Free Text/Narrative: A complete 12 point review of systems was obtained. Pertinent positives and negatives are noted in the history of present illness. All other systems were reviewed and were negative except as noted. Exam - Exam Exam: See Below - Vital Signs Vital Signs: Last Vital Signs Temp 36.2 C 05/02/17 10:43 Pulse 65 05/02/17 10:43 Resp 20 05/02/17 10:43 BP 126/79 05/02/17 10:43 Pulse Ox 96 05/02/17 10:43 Weight: 77.111 kg - Exam Quality Assessment: No: Supplemental Oxygen General: Alert, Oriented, Cooperative. No: Mild Distress HEENT: Conjunctiva Clear, Mucosa Moist & [place]. No: Scleral Icterus Neck: Supple, Trachea Midline. No: Lymphadenopathy Lungs: Clear to Auscultation, Normal Respiratory Effort Cardiovascular: Regular Rate, Regular Rhythm. No: Systolic Murmur GI/Abdominal Exam: Soft, Non-Tender, No Distention Back Exam: Normal Inspection, Paraspinal Tenderness (left lumbar), Vertebral Tenderness Extremities: No Pedal Edema. No: Increased Warmth Peripheral Pulses: 2+: Dorsalis Pedis (L), Dorsalis Pedis (R) Skin: Warm, Dry Neuro Extensive - Mental Status: Alert, Oriented x3, Nl Response to Commands Neuro Extensive - Motor, Sensory, Reflexes: CN II-XII Intact, Expressive Aphasia (mild), Abnormal Motor (mild left sided weakness). No: Dysarthria, Tremor Psychiatric: Alert, Normal Affect - Patient Data Imaging Impressions Last 24 hrs: Lumbar CT - images personally reviewed - there is a 10% compression fracture of L1 with displaced fragments. No other acute findings. *Q Meaningful Use (ADM) - VTE *Q VTE Criteria *Q: - VTE Risk Assess *Q Each Risk Factor Represents 1 Point: None Total Score 1 Point Risk Factors: 0 Each Risk Factor Represents 2 Points: None Total Score 2 Point Risk Factors: 0 Each Risk Factor Represents 3 Points: Age 75 Years or Greater Total Score 3 Point Risk Factors: 3 Each Risk Factor Represents 5 Points: None Total Score 5 Point Risk Factors: 0 Venous Thromboembolism Risk Factor Score *Q: 3 - Stroke *Q Stroke Criteria *Q: - AMI *Q AMI Criteria *Q: - Problem List (1) Compression fracture of L1 lumbar vertebra SNOMED Code(s): 253515520 ICD Code: S32.010A - WEDGE COMPRESSION FRACTURE OF FIRST LUMBAR VERTEBRA, INIT Status: Acute Current Visit: Yes Qualifiers: Encounter type: initial encounter (2) Acute back pain SNOMED Code(s): 627679197 ICD Code: M54.9 - DORSALGIA, UNSPECIFIED Status: Acute Current Visit: Yes Qualifiers: Back pain location: low back pain Back pain laterality: bilateral Sciatica presence: without sciatica Qualified Code(s): M54.5 - Low back pain (3) Cerebrovascular disease SNOMED Code(s): 29344235 ICD Code: I67.9 - CEREBROVASCULAR DISEASE, UNSPECIFIED Status: Acute Current Visit: Yes Problem List Initiated/Reviewed/Updated: Yes Orders Last 24hrs: Active Orders 24 hr Category Date Time Status Patient Status Manage Transfer [TRANSFER] Routine ADT 05/02/17 12:32 Ordered Peripheral IV Care [RC] . DIRECTED Care 05/02/17 12:30 Active Sodium Chloride 0.9% [Saline Flush] Med 05/02/17 12:30 Active 10 ml FLUSH ASDIRECTED PRN Peripheral IV Insertion Adult [OM.PC] Routine Oth 05/02/17 12:30 Ordered Resuscitation Status Routine Resus Stat 05/02/17 12:34 Ordered Medication Orders Sodium Chloride (Saline Flush) 10 ml FLUSH ASDIRECTED PRN PRN Reason: Keep Vein Open Last Admin: 05/02/17 12:43 Dose: 10 ml Admin: 05/02/17 12:41 Dose: 10 ml Assessment/Plan Comment:: Assessment and plan - Acute lower back pain with L1 compression fracture - mild loss of height but acute pain. Not able to ambulate which is probably complicated by her cerebrovascular disease and residual left-sided deficits. Not safe for outpatient management at this time. -Scheduled acetaminophen -As needed oxycodone -As needed ibuprofen -Calcitonin daily -Ice pack 4 times a day -Physical therapy evaluation Cerebrovascular disease - Patient suffered an ischemic stroke in December of this year and has some residual left-sided weakness. This will complicate her rehabilitation and recovery from the compression fracture as above. -Continue medical management Maintenance issues - - DVT prophylaxis - mechanical - GI prophylaxis - PPI - Nutrition - mechanical soft with thickened liquids - [place] catheter - not indicated CODE STATUS - patient wishes to be DO NOT RESUSCITATE but is okay with temporary intubation Admission justification - This patient will be admitted for inpatient services and is medically appropriate meeting medical necessity for inpatient admission as outlined in my documentation. I reasonably expect the patient will require inpatient services that span a period time over 2 midnights. I reasonably expect this patient to be discharged or transferred within 96 hours [facility] I suspect that the recovery from the compression fracture will be hampered by her residual deficits from the stroke and will require 2 or more days to provide enough improvement for her to be safe for outpatient management. Disposition - anticipate discharge to home, possibly with home health care after the hospital stay Primary care physician - Dr Melquiades Erwin M.D.
[2017-05-02] MEDS ORDERED: HYDROmorphone 0.5 MG/0.5 ML Syringe IVPUSH PRN (13:28)
[2017-05-02] MEDS ORDERED: Polyethylene Glycol 3350 Powder 17 GM Packet PO PRN (13:28)
[2017-05-02] MEDS ORDERED: Ondansetron 4 MG Tab.DIS PO PRN (13:28)
[2017-05-02] MEDS ORDERED: Ibuprofen 600 MG Tab PO PRN (13:28)
[2017-05-02] MEDS: Acetaminophen 500 MG Tab PO SCH ×2 (14:54→20:37)
[2017-05-02] MEDS: Carbidopa/Levodopa 25-100 MG Tab PO SCH ×2 (16:24→21:16)
[2017-05-02] MEDS: Calcitonin (Salmon) Nasal Spray 3.7 ML Bottle NAS SCH (16:31)
[2017-05-02] MEDS: oxyCODONE 5 MG Tab PO PRN (16:39)
[2017-05-02] MEDS: atorvaSTATin 20 MG Tab PO SCH (20:41)
[2017-05-03] MEDS: oxyCODONE 5 MG Tab PO PRN ×2 (05:44→18:19)
[2017-05-03] MEDS: Carbidopa/Levodopa 25-100 MG Tab PO SCH ×4 (05:46→21:12)
[2017-05-03] MEDS: Pantoprazole 40 MG Tab.CR PO SCH (07:23)
[2017-05-03] MEDS: Acetaminophen 500 MG Tab PO SCH ×3 (09:10→20:01)
[2017-05-03] MEDS: Aspirin 81 MG Tab.Chew PO SCH (09:10)
[2017-05-03] MEDS: Calcitonin (Salmon) Nasal Spray 3.7 ML Bottle NAS SCH (09:10)
[2017-05-03] MEDS: Metoprolol Succinate 50 MG Tab.ER PO SCH (09:11)
--- NOTE | 2017-05-03 11:02 | PCM.PN ---
- General Info Date of Service: 05/03/17 Functional Status: Reports: Pain Controlled, Ambulating - Review of Systems General: Reports: Weakness Musculoskeletal: Reports: Back Pain Systems Review Comment:: No acute events overnight. Back pain has been better controlled and for the most part has been controlled with scheduled acetaminophen. She has used some as needed oxycodone. She has not had any fevers and does not report shortness of breath or abdominal pain. She requires the assist of 2 people to get up and down when getting out and into bed. At this point I don't believe that she has reached a point where she safe for outpatient management but has improved since yesterday. Her is worried about navigating 3 steps into the house in her current state and does not think that he is capable of providing enough care by himself at this time. - Patient Data Vitals - Most Recent: Last Vital Signs Temp 36.2 C 05/03/17 07:13 Pulse 65 05/03/17 09:11 Resp 16 05/03/17 07:13 BP 124/56 L 05/03/17 09:11 Pulse Ox 94 L 05/03/17 07:13 Weight - Most Recent: 79.968 kg I&O - Last 24 Hours: Intake & Output 05/02/17 05/03/17 05/03/17 22:59 06:59 14:59 Intake Total 120 120 180 Balance 120 120 180 Med Orders - Current: Current Medications Acetaminophen (Tylenol Extra Strength) 1,000 mg PO TID [facility] Last Admin: 05/03/17 09:10 Dose: 1,000 mg Aspirin (Aspirin) 81 mg PO DAILY [facility] Last Admin: 05/03/17 09:10 Dose: 81 mg Atorvastatin Calcium (Lipitor) 20 mg PO BEDTIME [facility] Last Admin: 05/02/17 20:41 Dose: 20 mg Calcitonin [place] (Miacalcin Nasal [place]) 1 ml VEENA DAILY [facility] Last Admin: 05/03/17 09:10 Dose: 1 spray Carbidopa/Levodopa (Sinemet 25-100 Mg) 1 tab PO QID [facility] Last Admin: 05/03/17 09:10 Dose: 1 tab Hydromorphone HCl (Dilaudid) 0.25 - 0.5 mg IVPUSH Q2H PRN PRN Reason: Pain (severe 7-10) Ibuprofen (Motrin) 600 mg PO Q6H PRN PRN Reason: Pain/Fever Influenza Virus Vaccine (Fluzone High-Dose 2017-) 180 mcg IM .ONCE ONE Stop: 05/03/17 16:01 Metoprolol Succinate (Toprol Xl) 50 mg PO DAILY [facility] Last Admin: 05/03/17 09:11 Dose: 50 mg Ondansetron HCl (Zofran Odt) 4 mg PO Q6H PRN PRN Reason: Nausea able to take PO Oxycodone HCl (Oxycodone) 5 - 10 mg PO Q4H PRN PRN Reason: Pain (moderate 4-6) Last Admin: 05/03/17 05:44 Dose: 10 mg Pantoprazole Sodium (Protonix) 40 mg PO ACBREAKFAST [facility] Last Admin: 05/03/17 07:23 Dose: 40 mg Polyethylene Glycol (Miralax) 17 gm PO DAILY PRN PRN Reason: Constipation Senna/Docusate Sodium (Senna Plus) 1 tab PO BID PRN PRN Reason: Constipation Last Admin: 05/03/17 10:32 Dose: 1 tab Sodium Chloride (Saline Flush) 10 ml FLUSH ASDIRECTED PRN PRN Reason: Keep Vein Open Last Admin: 05/02/17 12:43 Dose: 10 ml Discontinued Medications Hydrocodone Bitart/Acetaminophen ([place] 325-10 Mg) 1 tab PO ONETIME ONE Stop: 05/02/17 11:37 Last Admin: 05/02/17 11:45 Dose: 1 tab Ketorolac Tromethamine (Toradol) 30 mg IVPUSH ONETIME ONE Stop: 05/02/17 12:32 Last Admin: 05/02/17 12:40 Dose: 30 mg - Exam Quality Assessment: No: Supplemental Oxygen General: Alert, Oriented, Cooperative, No Acute Distress Neck: Supple Lungs: Normal Respiratory Effort GI/Abdominal Exam: Soft, No Distention Extremities: No Pedal Edema Psy/Mental Status: Alert, Normal Affect - Problem List & Annotations (1) Compression fracture of L1 lumbar vertebra SNOMED Code(s): 725634190 Code(s): S32.010A - WEDGE COMPRESSION FRACTURE OF FIRST LUMBAR VERTEBRA, INIT Status: Acute Current Visit: Yes Qualifiers: Encounter type: initial encounter (2) Acute back pain SNOMED Code(s): 939685514 Code(s): M54.9 - DORSALGIA, UNSPECIFIED Status: Acute Current Visit: Yes Qualifiers: Back pain location: low back pain Back pain laterality: bilateral Sciatica presence: without sciatica Qualified Code(s): M54.5 - Low back pain (3) Cerebrovascular disease SNOMED Code(s): 24060995 Code(s): I67.9 - CEREBROVASCULAR DISEASE, UNSPECIFIED Status: Chronic Current Visit: Yes - Problem List Review Problem List Initiated/Reviewed/Updated: Yes - My Orders Last 24 Hours: My Active Orders 05/02/17 12:34 Resuscitation Status Routine 05/02/17 13:28 Patient Status [ADT] Routine May Shower [RC] DAILY Notify Provider Vital Signs [RC] ASDIRECTED Oxygen Therapy [RC] PRN Up With Assistance [RC] ASDIRECTED Up to Chair [RC] QID VTE/DVT Education [RC] Per Unit Routine Vital Signs [RC] Q4H PT Evaluation and Treatment [CONS] Routine Docusate Sodium/Sennosides [Senna Plus] 1 tab PO BID PRN HYDROmorphone [Dilaudid] 0.25 - 0.5 mg IVPUSH Q2H PRN Ibuprofen [Motrin] 600 mg PO Q6H PRN Ondansetron [Zofran ODT] 4 mg PO Q6H PRN Polyethylene Glycol 3350 [MiraLAX] 17 gm PO DAILY PRN oxyCODONE 5 - 10 mg PO Q4H PRN Ice Therapy [OM.PC] QID Sequential Compression Device [OM.PC] Per Unit Routine 05/02/17 14:00 Acetaminophen [Tylenol Extra Strength] 1,000 mg PO TID 05/02/17 16:00 Calcitonin ([place]) [Miacalcin Nasal [place]] 1 ml VEENA DAILY Carbidopa/Levodopa [Sinemet 25-100 mg] 1 tab PO QID 05/02/17 21:00 atorvaSTATin [Lipitor] 20 mg PO BEDTIME 05/02/17 Dinner Regular Diet [DIET] Thickened Liquids [DIET] 05/03/17 07:30 Pantoprazole [ProTONIX] 40 mg PO ACBREAKFAST 05/03/17 09:00 Aspirin 81 mg PO DAILY Metoprolol Succinate [Toprol XL] 50 mg PO DAILY 05/03/17 13:28 Ice Therapy [OM.PC] QID 05/03/17 16:00 FLU Vacc [id number](65YR UP)/PF [Fluzone High-Dose ] 180 mcg IM .ONCE ONE 05/04/17 13:28 Ice Therapy [OM.PC] QID 05/05/17 13:28 Ice Therapy [OM.PC] QID 05/06/17 13:28 Ice Therapy [OM.PC] QID 05/07/17 13:28 Ice Therapy [OM.PC] QID 05/08/17 13:28 Ice Therapy [OM.PC] QID 05/09/17 13:28 Ice Therapy [OM.PC] QID - Plan Plan:: Assessment and plan - Acute lower back pain with L1 compression fracture - mild loss of height but acute pain. Pain has improved. She is able to ambulate but requires a fair amount of assistance to get into and out of bed. With the assist of 2 requirement she is not safe for outpatient management as of yet. She has been working with physical therapy. -Scheduled acetaminophen -As needed oxycodone -As needed ibuprofen -Calcitonin daily -Ice pack 4 times a day -Physical therapy Cerebrovascular disease - Patient suffered an ischemic stroke in December of this year and has some residual left-sided weakness. This will complicate her rehabilitation and recovery from the compression fracture as above. -Continue medical management Maintenance issues - - DVT prophylaxis - mechanical - GI prophylaxis - PPI - Nutrition - regular with thickened liquids Disposition - anticipate discharge to home with home health care after the hospital stay Blake Erwin M.D.
[2017-05-03] MEDS ORDERED: FLU Vacc TS 2017-18 (65yr UP)/PF 180 MCG/0.5 ML Syringe IM ONE (16:00)
[2017-05-03] MEDS: atorvaSTATin 20 MG Tab PO SCH (20:01)
[2017-05-04] MEDS: Carbidopa/Levodopa 25-100 MG Tab PO SCH ×4 (06:17→21:49)
[2017-05-04] MEDS: Pantoprazole 40 MG Tab.CR PO SCH (07:01)
[2017-05-04] MEDS: Acetaminophen 500 MG Tab PO SCH ×3 (08:11→20:09)
[2017-05-04] MEDS: Aspirin 81 MG Tab.Chew PO SCH (08:11)
[2017-05-04] MEDS: Calcitonin (Salmon) Nasal Spray 3.7 ML Bottle NAS SCH (08:11)
[2017-05-04] MEDS: Metoprolol Succinate 50 MG Tab.ER PO SCH (08:12)
--- NOTE | 2017-05-04 10:11 | PCM.PN ---
- General Info Date of Service: 05/04/17 Functional Status: Reports: Pain Controlled, Tolerating Diet - Review of Systems General: Reports: Weakness Musculoskeletal: Reports: Back Pain Neurological: Reports: Confusion Systems Review Comment:: Some difficulty with confusion overnight but no significant behavior issues. She did not have any fevers. Back pain has been fairly well-controlled. Family thinks that she is a little bit sleepy compared to baseline. She continues to require the assist of 2 to get in and out of bed as well as move around. - Patient Data Vitals - Most Recent: Last Vital Signs Temp 36.6 C 05/04/17 07:53 Pulse 83 05/04/17 08:12 Resp 12 05/04/17 07:53 BP 145/92 H 05/04/17 08:12 Pulse Ox 96 05/04/17 07:53 Weight - Most Recent: 79.968 kg I&O - Last 24 Hours: Intake & Output 05/03/17 05/04/17 05/04/17 22:59 06:59 14:59 Intake Total 120 Balance 120 Med Orders - Current: Current Medications Acetaminophen (Tylenol Extra Strength) 1,000 mg PO TID [facility] Last Admin: 05/04/17 08:11 Dose: 1,000 mg Aspirin (Aspirin) 81 mg PO DAILY [facility] Last Admin: 05/04/17 08:11 Dose: 81 mg Atorvastatin Calcium (Lipitor) 20 mg PO BEDTIME [facility] Last Admin: 05/03/17 20:01 Dose: 20 mg Calcitonin [place] (Miacalcin Nasal [place]) 1 ml VEENA DAILY [facility] Last Admin: 05/04/17 08:11 Dose: 1 spray Carbidopa/Levodopa (Sinemet 25-100 Mg) 1 tab PO QID [facility] Last Admin: 05/04/17 09:36 Dose: 1 tab Hydromorphone HCl (Dilaudid) 0.25 - 0.5 mg IVPUSH Q2H PRN PRN Reason: Pain (severe 7-10) Ibuprofen (Motrin) 600 mg PO Q6H PRN PRN Reason: Pain/Fever Influenza Virus Vaccine (Fluzone High-Dose 2016-) 180 mcg IM .ONCE ONE Stop: 05/04/17 11:01 Metoprolol Succinate (Toprol Xl) 50 mg PO DAILY [facility] Last Admin: 05/04/17 08:12 Dose: 50 mg Ondansetron HCl (Zofran Odt) 4 mg PO Q6H PRN PRN Reason: Nausea able to take PO Oxycodone HCl (Oxycodone) 5 - 10 mg PO Q4H PRN PRN Reason: Pain (moderate 4-6) Last Admin: 05/03/17 18:19 Dose: 10 mg Pantoprazole Sodium (Protonix) 40 mg PO ACBREAKFAST [facility] Last Admin: 05/04/17 07:01 Dose: 40 mg Polyethylene Glycol (Miralax) 17 gm PO DAILY PRN PRN Reason: Constipation Senna/Docusate Sodium (Senna Plus) 1 tab PO BID PRN PRN Reason: Constipation Last Admin: 05/04/17 09:36 Dose: 1 tab Sodium Chloride (Saline Flush) 10 ml FLUSH ASDIRECTED PRN PRN Reason: Keep Vein Open Last Admin: 05/02/17 12:43 Dose: 10 ml Discontinued Medications Hydrocodone Bitart/Acetaminophen ([place] 325-10 Mg) 1 tab PO ONETIME ONE Stop: 05/02/17 11:37 Last Admin: 05/02/17 11:45 Dose: 1 tab Ketorolac Tromethamine (Toradol) 30 mg IVPUSH ONETIME ONE Stop: 05/02/17 12:32 Last Admin: 05/02/17 12:40 Dose: 30 mg - Exam Quality Assessment: No: Supplemental Oxygen General: Alert, Oriented, Cooperative, No Acute Distress Neck: Supple Lungs: Normal Respiratory Effort GI/Abdominal Exam: Soft, No Distention Extremities: No Pedal Edema Psy/Mental Status: Alert, Normal Affect - Problem List & Annotations (1) Compression fracture of L1 lumbar vertebra SNOMED Code(s): 268531736 Code(s): S32.010A - WEDGE COMPRESSION FRACTURE OF FIRST LUMBAR VERTEBRA, INIT Status: Acute Current Visit: Yes Qualifiers: Encounter type: initial encounter (2) Acute back pain SNOMED Code(s): 850054692 Code(s): M54.9 - DORSALGIA, UNSPECIFIED Status: Acute Current Visit: Yes Qualifiers: Back pain location: low back pain Back pain laterality: bilateral Sciatica presence: without sciatica Qualified Code(s): M54.5 - Low back pain (3) Cerebrovascular disease SNOMED Code(s): 61925569 Code(s): I67.9 - CEREBROVASCULAR DISEASE, UNSPECIFIED Status: Chronic Current Visit: Yes - Problem List Review Problem List Initiated/Reviewed/Updated: Yes - My Orders Last 24 Hours: My Active Orders 05/03/17 13:28 Ice Therapy [OM.PC] QID 05/04/17 10:10 Consult to Speech Language Pathology [SECURITY SYSTEMS INTEGRATOR Evaluation and Treatment] [CONS] Routine 05/04/17 11:00 FLU Vacc [id number](65YR UP)/PF [Fluzone High-Dose ] 180 mcg IM .ONCE ONE 05/04/17 13:28 Ice Therapy [OM.PC] QID 05/05/17 13:28 Ice Therapy [OM.PC] QID 05/06/17 13:28 Ice Therapy [OM.PC] QID 05/07/17 13:28 Ice Therapy [OM.PC] QID 05/08/17 13:28 Ice Therapy [OM.PC] QID 05/09/17 13:28 Ice Therapy [OM.PC] QID - Plan Plan:: Assessment and plan - Acute lower back pain with L1 compression fracture - mild loss of height but acute pain. Pain has improved. Still requiring the assistance of 2 people. Still not safe for outpatient management with significant weakness. Not safe at home with her . Has 3 steps to get in the house. -Scheduled acetaminophen -As needed oxycodone -As needed ibuprofen -Calcitonin daily -Ice pack 4 times a day -Physical therapy -Check UA to rule out occult infection Cerebrovascular disease - Patient suffered an ischemic stroke in December of this year and has some residual left-sided weakness. This will complicate her rehabilitation and recovery from the compression fracture as above. -Continue medical management Maintenance issues - - DVT prophylaxis - mechanical - GI prophylaxis - PPI - Nutrition - regular with thickened liquids Disposition - anticipate discharge to transitional care unit after the hospital stay Blake Erwin M.D.
[2017-05-04] MEDS ORDERED: FLU Vacc TS 2017-18 (65yr UP)/PF 180 MCG/0.5 ML Syringe IM ONE (11:00)
[2017-05-04] MEDS: Ciprofloxacin 500 MG Tab PO SCH ×2 (15:23→20:09)
[2017-05-04] MEDS: atorvaSTATin 20 MG Tab PO SCH (20:10)
[2017-05-04] MEDS ORDERED: Melatonin 3 MG Tab PO SCH (21:00)
[2017-05-05] MEDS: Carbidopa/Levodopa 25-100 MG Tab PO SCH ×2 (06:28→10:20)
[2017-05-05] MEDS: Acetaminophen 500 MG Tab PO SCH ×2 (08:38→13:04)
[2017-05-05] MEDS: Calcitonin (Salmon) Nasal Spray 3.7 ML Bottle NAS SCH (08:38)
[2017-05-05] MEDS: Pantoprazole 40 MG Tab.CR PO SCH (08:38)
[2017-05-05] MEDS: Ciprofloxacin 500 MG Tab PO SCH (08:38)
[2017-05-05] MEDS: Aspirin 81 MG Tab.Chew PO SCH (08:38)
[2017-05-05] MEDS: Metoprolol Succinate 50 MG Tab.ER PO SCH (08:39)
[2017-05-05] MEDS ORDERED: Bisacodyl 10 MG Supp RECTAL ONE (09:00)
--- NOTE | 2017-05-05 10:50 | PCM.DCSUM1 ---
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 She was admitted for pain control with a compression fracture. - Discharge Data Discharge Date: 05/05/17 Discharge Disposition: DC/Tfer to SNF 03 Condition: Fair - Discharge Diagnosis/Problem(s) (1) Compression fracture of L1 lumbar vertebra SNOMED Code(s): 808847570 ICD Code: S32.010A - WEDGE COMPRESSION FRACTURE OF FIRST LUMBAR VERTEBRA, INIT Status: Acute Current Visit: Yes Qualifiers: Encounter type: initial encounter (2) Acute back pain SNOMED Code(s): 726056432 ICD Code: M54.9 - DORSALGIA, UNSPECIFIED Status: Acute Current Visit: Yes Qualifiers: Back pain location: low back pain Back pain laterality: bilateral Sciatica presence: without sciatica Qualified Code(s): M54.5 - Low back pain (3) Cerebrovascular disease SNOMED Code(s): 59868860 ICD Code: I67.9 - CEREBROVASCULAR DISEASE, UNSPECIFIED Status: Chronic Current Visit: Yes (4) Acute cystitis with positive culture SNOMED Code(s): 840963681 ICD Code: N30.00 - ACUTE CYSTITIS WITHOUT HEMATURIA Status: Acute Current Visit: Yes - Patient Summary/Data Consults: Consultations 05/02/17 13:28 PT Evaluation and Treatment [CONS] Routine Please Evaluate and Treat. PT Reason for Consult: back pain, L1 compression fracture This query below is only for informational purposes and is not editable. 05/04/17 10:10 Consult to Speech Language Pathology [DISC PAD PLATE FILLER Evaluation and Treatment] [CONS] Routine Please Evaluate and Treat DISC PAD PLATE FILLER Reason for Consult: Speech Language Cognitive Discharge Disposition: Longterm Facility This query below is only for informational purposes and is not editable. Admission Diagnosis/Problem: Compression fracture of L1 lumbar vertebra Hospital Course: Gaby reason to to the emergency room with acute back pain after a fall at home. Workup in the emergency room was suggestive of a small compression fracture at L1 with 10% loss of height. Because of the pain and chronic difficulties with left-sided weakness following her CVA she was admitted to the hospital for pain control and physical therapy. Over the next couple of days we did make some improvement in her back pain. She continued to be very weak and required the assist of 2 people. We did obtain a urine sample which was suggestive of infection and ciprofloxacin was empirically initiated based on allergies to penicillins and cephalosporins. She's been more alert and interactive since antibiotics were initiated. She does remain weak and requires assistance into and out of bed as well as ambulating. Her pain has been fairly well-controlled using scheduled acetaminophen and as needed oxycodone. She is also on calcitonin to help facilitate fracture healing. I believe she would be best suited in a subacute rehabilitation facility until she makes some improvements with strength and transfers. She is safe for outpatient management at this time and will be discharged to [facility] in [place]. She will be on ciprofloxacin for 7 more doses to complete treatment for her urinary tract infection. Pain control will be with acetaminophen and oxycodone. She would benefit from physical therapy, occupational therapy and speech therapy. - Patient Instructions Diet: Regular Diet as Tolerated Diet, Other: Thickened liquids Activity: As Tolerated Showering/Bathing: May Shower Notify Provider of: Fever, Increased Pain, Nausea and/or Vomiting Other/Special Instructions: 1. You were admitted to the hospital for pain controlwith acute back pain related to an L1 compression fracture. The fracture is mild and you lost only approximately 10% of the height of the vertebrae. I recommend pain control with scheduled acetaminophen and as needed oxycodone. I also recommend that you use calcitonin daily for the next one month. 2. Your urine sample was suggestive of infection injury urine culture is growing a bacteria at this time. We have empirically started ciprofloxacin and you will take this twice daily for 7 more doses. Your next dose is due tonight. 3. Code status - DO NOT RESUSCITATE and DO NOT INTUBATE. 4. Referral to physical and occupational therapy for strengthening. 5. Referral to speech therapy for ongoing management of dysarthria and dysphasia status post CVA. 6. Seek medical attention if you develop fever greater than 101, have sudden worsening of her back pain, or you develop significant shortness of breath. - Discharge Plan Prescriptions/Med Rec: Acetaminophen [Tylenol Extra Strength] 1,000 mg PO TID #180 tablet Calcitonin ([place]) [Miacalcin Nasal [place]] 1 ml VEENA DAILY #1 bottle Ciprofloxacin HCl 250 mg PO BID #7 tablet oxyCODONE 5 mg PO Q4H PRN #40 tablet PRN Reason: Pain Home Medications: Home Meds atorvaSTATin [Lipitor] 20 mg PO ONETIME 01/02/17 [History] Aspirin 81 mg PO DAILY tab.chew 01/03/17 [Rx] Metoprolol Succinate [Toprol XL] 50 mg PO DAILY tab.er 01/03/17 [Rx] Carbidopa/Levodopa [Sinemet 25-100 mg Tablet] 1 tab PO QID 05/02/17 [History] Cholecalciferol (Vitamin D3) [Vitamin D] 2,000 unit PO DAILY 05/02/17 [History] Omeprazole 20 mg PO BIDAC 05/02/17 [History] Acetaminophen [Tylenol Extra Strength] 1,000 mg PO TID #180 tablet 05/05/17 [Rx] Calcitonin ([place]) [Miacalcin Nasal [place]] 1 ml VEENA DAILY #1 bottle 05/05/17 [ Rx] Ciprofloxacin HCl 250 mg PO BID #7 tablet 05/05/17 [Rx] oxyCODONE 5 mg PO Q4H PRN #40 tablet 05/05/17 [Rx] Patient Handouts: Spinal Compression Fracture, Oxycodone tablets or capsules, Ciprofloxacin tablets Referrals: Spike Arnett MD [Primary Care Provider] - (f/u as needed after your NH stay ) - Discharge Summary/Plan Comment DC Time >30 min.: Yes (45 - new skilled nursing discharge) - Patient Data Vitals - Most Recent: Last Vital Signs Temp 36.4 C 05/05/17 07:49 Pulse 72 05/05/17 08:39 Resp 18 05/05/17 07:49 BP 138/69 05/05/17 08:39 Pulse Ox 94 L 05/05/17 07:49 Weight - Most Recent: 79.968 kg I&O - Last 24 hours: Intake & Output 05/04/17 05/05/17 05/05/17 22:59 06:59 14:59 Intake Total 220 60 360 Balance 220 60 360 Lab Results - Last 24 hrs: Laboratory Results - last 24 hr 05/04/17 Range/Units 14:16 Urine Color Yellow Urine Appearance Cloudy Urine pH 6.5 (4.5-8.0) Ur Specific [place] 1.015 (1.008-1.030) Urine Protein Negative (NEGATIVE) mg/dL Urine Glucose (UA) Normal (NEGATIVE) mg/dL Urine Ketones Negative (NEGATIVE) mg/dL Urine Occult Blood Moderate (NEGATIVE) Urine Nitrite Positive H (NEGATIVE) Urine Bilirubin Negative (NEGATIVE) Urine Urobilinogen 1 (NORMAL) mg/dL Ur Leukocyte Esterase Large (NEGATIVE) Urine RBC 30-40 H (0-5) Urine WBC Packed H (0-5) Ur Epithelial Cells Many Amorphous Sediment Moderate Urine Bacteria Many Urine Mucus Few Urine Other See note ISABEL Results - Last 24 hrs: Microbiology 05/04/17 14:50 Urine Culture - Preliminary Urine, Catheterized Med Orders - Current: Current Medications Acetaminophen (Tylenol Extra Strength) 1,000 mg PO TID [facility] Last Admin: 05/05/17 08:38 Dose: 1,000 mg Aspirin (Aspirin) 81 mg PO DAILY [facility] Last Admin: 05/05/17 08:38 Dose: 81 mg Atorvastatin Calcium (Lipitor) 20 mg PO BEDTIME [facility] Last Admin: 05/04/17 20:10 Dose: 20 mg Calcitonin [place] (Miacalcin Nasal [place]) 1 ml VEENA DAILY [facility] Last Admin: 05/05/17 08:38 Dose: 1 spray Carbidopa/Levodopa (Sinemet 25-100 Mg) 1 tab PO QID [facility] Last Admin: 05/05/17 10:20 Dose: 1 tab Ciprofloxacin (Ciprofloxacin Hcl) 250 mg PO BID [facility] Last Admin: 05/05/17 08:38 Dose: 250 mg Hydromorphone HCl (Dilaudid) 0.25 - 0.5 mg IVPUSH Q2H PRN PRN Reason: Pain (severe 7-10) Ibuprofen (Motrin) 600 mg PO Q6H PRN PRN Reason: Pain/Fever Melatonin (Melatonin) 9 mg PO BEDTIME [facility] Last Admin: 05/04/17 20:10 Dose: 9 mg Metoprolol Succinate (Toprol Xl) 50 mg PO DAILY [facility] Last Admin: 05/05/17 08:39 Dose: 50 mg Ondansetron HCl (Zofran Odt) 4 mg PO Q6H PRN PRN Reason: Nausea able to take PO Oxycodone HCl (Oxycodone) 5 - 10 mg PO Q4H PRN PRN Reason: Pain (moderate 4-6) Last Admin: 05/03/17 18:19 Dose: 10 mg Pantoprazole Sodium (Protonix) 40 mg PO ACBREAKFAST [facility] Last Admin: 05/05/17 08:38 Dose: 40 mg Polyethylene Glycol (Miralax) 17 gm PO DAILY PRN PRN Reason: Constipation Senna/Docusate Sodium (Senna Plus) 1 tab PO BID PRN PRN Reason: Constipation Last Admin: 05/04/17 20:42 Dose: 1 tab Sodium Chloride (Saline Flush) 10 ml FLUSH ASDIRECTED PRN PRN Reason: Keep Vein Open Last Admin: 05/02/17 12:43 Dose: 10 ml Discontinued Medications Hydrocodone Bitart/Acetaminophen ([place] 325-10 Mg) 1 tab PO ONETIME ONE Stop: 05/02/17 11:37 Last Admin: 05/02/17 11:45 Dose: 1 tab Bisacodyl (Dulcolax) 10 mg RECTAL ONETIME ONE Stop: 05/05/17 09:01 Last Admin: 05/05/17 08:55 Dose: 10 mg Influenza Virus Vaccine (Fluzone High-Dose ) 180 mcg IM .ONCE ONE Stop: 05/04/17 11:01 Last Admin: 05/04/17 10:46 Dose: 180 mcg Ketorolac Tromethamine (Toradol) 30 mg IVPUSH ONETIME ONE Stop: 05/02/17 12:32 Last Admin: 05/02/17 12:40 Dose: 30 mg - Exam Quality Assessment: Denies: Supplemental Oxygen General: Reports: Alert, Oriented, Cooperative, No Acute Distress Neck: Reports: Supple Lungs: Reports: Normal Respiratory Effort Cardiovascular: Reports: Regular Rate, Regular Rhythm GI/Abdominal Exam: Soft, No Distention Extremities: No Pedal Edema Skin: Reports: Warm, Dry Psy/Mental Status: Reports: Alert, Normal Affect *Q Meaningful Use (DIS) - VTE *Q VTE Criteria *Q: - Stroke *Q Stroke Criteria *Q: - AMI *Q AMI Criteria *Q:
[2017-05-05 11:12] VITALS: BP 128/54
== END 2017-05-05 13:15 | DRG 552 ==
LOC: JP.ED 10:32 → JP.MS 12:32
PROVIDERS: ADMIT Internal Medicine; ATTEND Internal Medicine
DX: S32.010A Wedge compression fracture of first lumbar vertebra, initial encounter for closed fracture (principal); I69.354 Hemiplegia and hemiparesis following cerebral infarction affecting left non-dominant side; N30.00 Acute cystitis without hematuria; I10 Essential (primary) hypertension; Z87.891 Personal history of nicotine dependence; I69.322 Dysarthria following cerebral infarction; Z66 Do not resuscitate; W01.0XXA Fall on same level from slipping, tripping and stumbling without subsequent striking against object, initial encounter; Z23 Encounter for immunization; E78.00 Pure hypercholesterolemia, unspecified; Z85.038 Personal history of other malignant neoplasm of large intestine; H54.7 Unspecified visual loss; H91.90 Unspecified hearing loss, unspecified ear; Z88.1 Allergy status to other antibiotic agents; Z79.82 Long term (current) use of aspirin; I69.391 Dysphagia following cerebral infarction; Y92.009 Unspecified place in unspecified non-institutional (private) residence as the place of occurrence of the external cause; R82.79 Other abnormal findings on microbiological examination of urine
CPT/HCPCS: 72131 ×2; 99285; A9270; 51701; 81001; 87086; 87088; 87186; 90662; 96125-GN; 96374; 97162-GP; 97530-GP; 97532-GN; G0008; J1885; J7050

== ENCOUNTER 2017-06-19 12:47 | Emergency (ER) | payer MEDICARE, BC ==
[2017-06-19 13:12] VITALS: BP 125/69
--- NOTE | 2017-06-19 15:14 | EDM.PDOC ---
ED HPI GENERAL MEDICAL PROBLEM - General Chief Complaint: Genitourinary Problem Stated Complaint: UTI??? Time Seen by Provider: 06/19/17 14:45 Source of Information: Reports: Patient, Family, Old Records History Limitations: Reports: No Limitations - History of Present Illness INITIAL COMMENTS - FREE TEXT/NARRATIVE: 77 yo female with a pHx of chronic, recurrent UTI's presents with mild confusion. Has had this as her main sx's with UTI's in the past. No fever or nausea or flank pain. Here with family. Onset: Unknown/Unsure Onset Date: 06/18/17 Duration: Hour(s):, Getting Worse Location: Reports: Generalized Improves with: Reports: None Worsens with: Reports: Other (time) Context: Reports: Other (Hx of frequent UTI's) Associated Symptoms: Reports: Confusion (mild). 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) (none) - Related Data Allergies Allergy/AdvReac Type Severity Reaction Status Date / Time amoxicillin Allergy Rash Verified 06/19/17 13:21 cephradine Allergy Rash Verified 06/19/17 13:21 Home Meds: Home Meds atorvaSTATin [Lipitor] 20 mg PO ONETIME 01/02/17 [History] Aspirin 81 mg PO DAILY tab.chew 01/03/17 [Rx] Metoprolol Succinate [Toprol XL] 50 mg PO DAILY tab.er 01/03/17 [Rx] Carbidopa/Levodopa [Sinemet 25-100 mg Tablet] 1 tab PO TID 05/02/17 [History] Cholecalciferol (Vitamin D3) [Vitamin D] 2,000 unit PO DAILY 05/02/17 [History] Omeprazole 20 mg PO BIDAC 05/02/17 [History] Acetaminophen [Tylenol Extra Strength] 1,000 mg PO ASDIRECTED PRN 06/19/17 [ History] Calcitonin ([place]) [Miacalcin Nasal [place]] 1 ml VEENA DAILY PRN 06/19/17 [History ] Ciprofloxacin [Ciprofloxacin HCl] 250 mg PO BID #12 tab 06/19/17 [Rx] Cranberry 400 mg PO DAILY 06/19/17 [History] Multivitamin [Multi-Vitamin Daily] 1 each PO DAILY 06/19/17 [History] Past Medical History HEENT History: Reports: Impaired Vision, Other (See Below) 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 Psychiatric History: Reports: Dementia Endocrine/Metabolic History: Reports: None Hematologic History: Reports: None Immunologic History: Reports: None Dermatologic History: Reports: None - Infectious Disease History Infectious Disease History: Reports: C-Difficile - Past Surgical History Head Surgeries/Procedures: Reports: None HEENT Surgical History: Reports: Eye Surgery GI Surgical History: Reports: Colonoscopy Female Surgical History: Reports: Hysterectomy, Oophorectomy Oncologic Surgical History: Reports: Other (See Below) Other Oncologic Surgeries/Procedures: tubular adenoma of colon-with mild dyslasia in 05/2011 Social & Family History - Family History Family Medical History: Unobtainable - Tobacco Use Smoking Status *Q: Unknown Ever Smoked Years of Tobacco use: 30 Packs/Tins Daily: 0.5 Used Tobacco, but Quit: No Month Tobacco Last Used: December Second Hand Smoke Exposure: No - Caffeine Use Caffeine Use: Reports: Coffee, Tea - Recreational Drug Use Recreational Drug Use: No ED ROS GENERAL - Review of Systems Review Of Systems: See Below Constitutional: Reports: No Symptoms HEENT: Reports: No Symptoms Respiratory: Reports: No Symptoms Cardiovascular: Reports: No Symptoms GI/Abdominal: Reports: No Symptoms : Reports: No Symptoms Musculoskeletal: Reports: No Symptoms Skin: Reports: No Symptoms Neurological: Reports: Confusion (mild) Psychiatric: Reports: No Symptoms ED EXAM, RENAL/ - Physical Exam Exam: See Below Exam Limited By: No Limitations General Appearance: Alert, WD/WN, No Apparent Distress Eye Exam: Bilateral Eye: Normal Inspection Ears: Normal External Exam, Normal Canal, Hearing Grossly Normal Nose: Normal Inspection, Normal Mucosa, No Blood Throat/Mouth: Normal Inspection, Normal Lips, Normal Teeth, Normal Oropharynx, Normal Voice, No Airway Compromise Head: Atraumatic, Normocephalic Neck: Normal Inspection Respiratory/Chest: No Respiratory Distress, Lungs Clear, Normal Breath Sounds, No Accessory Muscle Use Cardiovascular: Regular Rate, Rhythm, No Edema GI/Abdominal: Normal Bowel Sounds, Soft, Non-Tender, No Distention Back Exam: No: CVA Tenderness (R), CVA Tenderness (L) Extremities: Normal Inspection, Normal Range of Motion, Non-Tender, No Pedal Edema Neurological: Alert, Oriented, CN II-XII Intact, Normal Cognition, No Motor/ Sensory Deficits Psychiatric: Normal Affect, Normal Mood Skin Exam: Warm, Dry, Intact, Normal Color, No Rash Lymphatic: No Adenopathy Course - Vital Signs Last Recorded V/S: Last Vital Signs Temp 36.7 C 06/19/17 13:16 Pulse 63 06/19/17 13:16 Resp 14 06/19/17 13:16 BP 125/69 06/19/17 13:16 Pulse Ox 96 06/19/17 13:16 - Orders/Labs/Meds Orders: Active Orders 24 hr Category Date Time Status CULTURE URINE [RM] Stat Lab 06/19/17 14:00 Received Labs: Laboratory Tests 06/19/17 Range/Units 13:44 Urine Color Yellow Urine Appearance Slightly cloudy Urine pH 6.0 (4.5-8.0) Ur Specific [place] 1.015 (1.008-1.030) Urine Protein Negative (NEGATIVE) mg/dL Urine Glucose (UA) Normal (NEGATIVE) mg/dL Urine Ketones Negative (NEGATIVE) mg/dL Urine Occult Blood Trace (NEGATIVE) Urine Nitrite Positive H (NEGATIVE) Urine Bilirubin Negative (NEGATIVE) Urine Urobilinogen 1 (NORMAL) mg/dL Ur Leukocyte Esterase Negative (NEGATIVE) Urine RBC 0-5 (0-5) Urine WBC 20-30 H (0-5) Ur Epithelial Cells Not seen Amorphous Sediment Not seen Urine Bacteria Many Urine Mucus Moderate Departure - Departure Time of Disposition: 15:00 Disposition: Home, Self-Care 01 Condition: Fair Clinical Impression: UTI, Urinary tract infectious disease - Discharge Information Prescriptions: Ciprofloxacin [Ciprofloxacin HCl] 250 mg PO BID #12 tab Instructions: Urinary Tract Infection, Adult Referrals: Spike Arnett MD [Primary Care Provider] - Forms: ED Department Discharge Additional Instructions: Take Cipro every 12 hrs as directed until gone. Drink ample fluids. Take AZO per package instructions for discomfort. Recheck in the clinic by to go over your culture results. Return for fever. - My Orders Last 24 Hours: My Active Orders 06/19/17 14:00 CULTURE URINE [RM] Stat - Assessment/Plan Last 24 Hours: My Active Orders 06/19/17 14:00 CULTURE URINE [RM] Stat
== END 2017-06-19 14:50 | disposition home or self-care (01) ==
LOC: JP.ED 12:47
DX: N39.0 Urinary tract infection, site not specified (principal); I10 Essential (primary) hypertension; E78.00 Pure hypercholesterolemia, unspecified; F03.90 Unspecified dementia, unspecified severity, without behavioral disturbance, psychotic disturbance, mood disturbance, and anxiety; Z79.82 Long term (current) use of aspirin; Z79.899 Other long term (current) drug therapy; Z88.1 Allergy status to other antibiotic agents
CPT/HCPCS: 81001; 87086; 87088; 87186; 99284; 99285

== ENCOUNTER 2017-07-01 15:43 | Emergency (ER) | payer MEDICARE, BC ==
[2017-07-01 16:15] VITALS: BP 126/70
--- NOTE | 2017-07-01 17:32 | EDM.PDOC ---
ED HPI GENERAL MEDICAL PROBLEM - General Chief Complaint: Genitourinary Problem Stated Complaint: UTI Time Seen by Provider: 07/01/17 17:27 Source of Information: Reports: Patient, Family History Limitations: Reports: No Limitations - History of Present Illness INITIAL COMMENTS - FREE TEXT/NARRATIVE: pt arrived with a history of urinary frequency and incontinence, She does get somewhat confused when she has an infection. Onset: Today, Other ( slight confusion. ) Duration: Hour(s): Associated Symptoms: Reports: No Other Symptoms, Confusion, Other ( The confusion has been very mild. She just finished a course of sulfa. ) - Related Data Allergies Allergy/AdvReac Type Severity Reaction Status Date / Time amoxicillin Allergy Rash Verified 07/01/17 16:39 cephradine Allergy Rash Verified 07/01/17 16:39 ciprofloxacin [From Cipro] Allergy Other Verified 07/01/17 16:40 Home Meds: Home Meds atorvaSTATin [Lipitor] 20 mg PO ONETIME 01/02/17 [History] Aspirin 81 mg PO DAILY tab.chew 01/03/17 [Rx] Metoprolol Succinate [Toprol XL] 50 mg PO DAILY tab.er 01/03/17 [Rx] Carbidopa/Levodopa [Sinemet 25-100 mg Tablet] 1 tab PO TID 05/02/17 [History] Cholecalciferol (Vitamin D3) [Vitamin D] 2,000 unit PO DAILY 05/02/17 [History] Omeprazole 20 mg PO BIDAC 05/02/17 [History] Acetaminophen [Tylenol Extra Strength] 1,000 mg PO ASDIRECTED PRN 06/19/17 [ History] Calcitonin ([place]) [Miacalcin Nasal [place]] 1 ml VEENA DAILY PRN 06/19/17 [History ] Cranberry 400 mg PO DAILY 06/19/17 [History] Multivitamin [Multi-Vitamin Daily] 1 each PO DAILY 06/19/17 [History] Past Medical History HEENT History: Reports: Impaired Vision, Other (See Below) 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 Psychiatric History: Reports: Dementia Endocrine/Metabolic History: Reports: None Hematologic History: Reports: None Immunologic History: Reports: None Dermatologic History: Reports: None - Infectious Disease History Infectious Disease History: Reports: C-Difficile - Past Surgical History Head Surgeries/Procedures: Reports: None HEENT Surgical History: Reports: Eye Surgery GI Surgical History: Reports: Colonoscopy Female Surgical History: Reports: Hysterectomy, Oophorectomy Oncologic Surgical History: Reports: Other (See Below) Other Oncologic Surgeries/Procedures: tubular adenoma of colon-with mild dyslasia in 05/2011 Social & Family History - Family History Family Medical History: Unobtainable - Tobacco Use Smoking Status *Q: Former Smoker Years of Tobacco use: 30 Packs/Tins Daily: 0.5 Used Tobacco, but Quit: Yes Month Tobacco Last Used: 1988 Second Hand Smoke Exposure: No - Caffeine Use Caffeine Use: Reports: Coffee - Recreational Drug Use Recreational Drug Use: No ED ROS GENERAL - Review of Systems Review Of Systems: See Below Constitutional: Reports: No Symptoms HEENT: Reports: No Symptoms Respiratory: Reports: No Symptoms Cardiovascular: Reports: No Symptoms Endocrine: Reports: No Symptoms GI/Abdominal: Reports: No Symptoms : Reports: Incontinence, Other ( this is chronic. She does have a history of recurrent utis. ) Musculoskeletal: Reports: No Symptoms ED EXAM, GI/ABD - Physical Exam Exam: See Below Text/Narrative:: pt arrived with a history of mild confusion. She just finished a course of sulfa. She does have macrobid at home. Exam Limited By: No Limitations General Appearance: Alert, Other (pt is answering normally at this timme. ) Eyes: Bilateral: Normal Appearance, EOMI Ears: Normal TMs Nose: Normal Inspection Throat/Mouth: Normal Inspection Head: Atraumatic Neck: Supple Respiratory/Chest: No Respiratory Distress Cardiovascular: Regular Rate, Rhythm GI/Abdominal Exam: Soft, Non-Tender (Female) Exam: Deferred Course - Vital Signs Last Recorded V/S: Last Vital Signs Temp 36.4 C 07/01/17 16:37 Pulse 79 07/01/17 16:37 Resp 18 07/01/17 16:37 BP 126/70 07/01/17 16:37 Pulse Ox 97 07/01/17 16:37 - Orders/Labs/Meds Orders: Active Orders 24 hr Category Date Time Status CULTURE URINE [RM] Stat Lab 07/01/17 17:19 Uncollected Labs: Laboratory Tests 07/01/17 Range/Units 16:53 Urine Color Yellow Urine Appearance Clear Urine pH 5.0 (4.5-8.0) Ur Specific [place] 1.025 (1.008-1.030) Urine Protein Negative (NEGATIVE) mg/dL Urine Glucose (UA) Normal (NEGATIVE) mg/dL Urine Ketones Negative (NEGATIVE) mg/dL Urine Occult Blood Negative (NEGATIVE) Urine Nitrite Negative (NEGATIVE) Urine Bilirubin Negative (NEGATIVE) Urine Urobilinogen Normal (NORMAL) mg/dL Ur Leukocyte Esterase Negative (NEGATIVE) Urine RBC Not seen (0-5) Urine WBC 5-10 H (0-5) Ur Epithelial Cells Few Amorphous Sediment Not seen Urine Bacteria Few Urine Mucus Not seen - Re-Assessments/Exams Free Text/Narrative Re-Assessment/Exam: 07/01/17 17:33 urine has 5-10 wbcs and a few bacteria. The urine was cultured. The pt is on the dry side. She has macrobid at home so will have her start the macrobid. Departure - Departure Time of Disposition: 17:35 Disposition: Home, Self-Care 01 Condition: Fair Clinical Impression: UTI (urinary tract infection) - Discharge Information Referrals: Spike Arnett MD [Primary Care Provider] - Forms: ED Department Discharge Care Plan Goals: push fluids, start macrobid that she has at home. Will notify of the culture results. - My Orders Last 24 Hours: My Active Orders 07/01/17 17:19 CULTURE URINE [RM] Stat - Assessment/Plan Last 24 Hours: My Active Orders 07/01/17 17:19 CULTURE URINE [RM] Stat
== END 2017-07-01 17:47 | disposition home or self-care (01) ==
LOC: JP.ED 15:43
DX: N39.0 Urinary tract infection, site not specified (principal); I10 Essential (primary) hypertension; E78.00 Pure hypercholesterolemia, unspecified; Z88.1 Allergy status to other antibiotic agents; Z88.8 Allergy status to other drugs, medicaments and biological substances; Z79.899 Other long term (current) drug therapy; Z87.891 Personal history of nicotine dependence
CPT/HCPCS: 81001; 87086; 99282; 99284

== ENCOUNTER 2017-10-04 18:23 | Observation (INO) | payer MEDICARE, BC ==
--- NOTE | 2017-10-04 18:48 | EDM.PDOC ---
ED HPI GENERAL MEDICAL PROBLEM - General Chief Complaint: Neuro Symptoms/Deficits Stated Complaint: MEDICAL VIA [facility] Time Seen by Provider: 10/04/17 18:25 Source of Information: Reports: Patient, EMS, Family, Old Records History Limitations: Reports: No Limitations - History of Present Illness INITIAL COMMENTS - FREE TEXT/NARRATIVE: 77 yo female s/p CVA lives with her . Apparently due to her deficit since her stroke they interviewed recently regarding putting her in [facility]. The says her mental functionality fluctuates considerably from day to day. She often takes a couple minutes to process questions before she answers. She has recently been tx'd for a UTI and is just about done with her antibiotic. Today she took a nap starting at 3 pm for a couple of hrs. At the start of the nap she was at her baseline. When she woke up the describes her as "unresponsive". EMS transported with stable vitals. Now in the ER Gaby is more alert and the feels she is pretty much back to her baseline. Onset: Today Onset Date: 10/04/17 Onset Time: 17:00 (? 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) (none) denies Pain Score (Numeric/FACES): 0 - Related Data Allergies Allergy/AdvReac Type Severity Reaction Status Date / Time amoxicillin Allergy Rash Verified 10/04/17 18:35 cephradine Allergy Rash Verified 10/04/17 18:35 ciprofloxacin [From Cipro] Allergy Other Verified 10/04/17 18:35 Sulfa (Sulfonamide Allergy Fluid Verified 10/04/17 18:35 Antibiotics) Retention Home Meds: Home Meds atorvaSTATin [Lipitor] 20 mg PO DAILY 01/02/17 [History] Aspirin 81 mg PO DAILY tab.chew 01/03/17 [Rx] Metoprolol Succinate [Toprol XL] 50 mg PO DAILY tab.er 01/03/17 [Rx] Cholecalciferol (Vitamin D3) [Vitamin D] 2,000 unit PO DAILY 05/02/17 [History] Omeprazole 20 mg PO BIDAC 05/02/17 [History] Acetaminophen [Tylenol Extra Strength] 1,000 mg PO ASDIRECTED PRN 06/19/17 [ History] Calcitonin ([place]) [Miacalcin Nasal [place]] 1 ml VEENA DAILY PRN 06/19/17 [History ] Cranberry 400 mg PO DAILY 06/19/17 [History] Multivitamin [Multi-Vitamin Daily] 1 each PO DAILY 06/19/17 [History] Nitrofurantoin [place]/Macrocryst [Nitrofurantoin [place]-MCR] 100 mg PO BID 10/04/17 [History] Past Medical History HEENT History: Reports: Impaired Vision, Other (See Below) 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 Psychiatric History: Reports: Dementia Endocrine/Metabolic History: Reports: None Hematologic History: Reports: None Immunologic History: Reports: None Dermatologic History: Reports: None - Infectious Disease History Infectious Disease History: Reports: C-Difficile - Past Surgical History Head Surgeries/Procedures: Reports: None HEENT Surgical History: Reports: Eye Surgery GI Surgical History: Reports: Colonoscopy Female Surgical History: Reports: Hysterectomy, Oophorectomy Oncologic Surgical History: Reports: Other (See Below) Other Oncologic Surgeries/Procedures: tubular adenoma of colon-with mild dyslasia in 05/2011 Social & Family History - Family History Family Medical History: Unobtainable - Tobacco Use Smoking Status *Q: Former Smoker Years of Tobacco use: 30 Packs/Tins Daily: 0.5 Used Tobacco, but Quit: Yes Month/Year Tobacco Last Used: 1988 Second Hand Smoke Exposure: No - Caffeine Use Caffeine Use: Reports: Coffee - Recreational Drug Use Recreational Drug Use: No ED ROS GENERAL - Review of Systems Review Of Systems: See Below Constitutional: Reports: No Symptoms HEENT: Reports: No Symptoms Respiratory: Reports: No Symptoms Cardiovascular: Reports: No Symptoms GI/Abdominal: Reports: No Symptoms : Reports: No Symptoms (Recent UTI, on last couple of doses of antibiotics) Musculoskeletal: Reports: No Symptoms Skin: Reports: No Symptoms Neurological: Reports: Confusion, Trouble Speaking (not new), Difficulty Walking (not new), Weakness, Other (decreased LOC, now back to normal.) Psychiatric: Reports: No Symptoms ED EXAM, NEURO - Physical Exam Exam: See Below Exam Limited By: No Limitations General Appearance: Alert, WD/WN, No Apparent Distress Eye Exam: Bilateral Eye: PERRL, Vision Changes (no field deficits), Other (not able to get her to look down) Ears: Normal External Exam, Normal Canal, Hearing Grossly Normal, Normal TMs Nose: Normal Inspection, Normal Mucosa, No Blood Throat/Mouth: Normal Inspection, Normal Lips, Normal Oropharynx, No Airway Compromise, Other (speach not fluid, this is normal for her since her stroke.) Head Exam: Atraumatic, Normocephalic Neck: Normal Inspection, Supple, Non-Tender Respiratory/Chest: No Respiratory Distress, Lungs Clear, Normal Breath Sounds, No Accessory Muscle Use Cardiovascular: Regular Rate, Rhythm GI/Abdominal: Normal Bowel Sounds, Soft, No Distention Neurological: Alert, Normal Mood/Affect, CN II-XII Intact, Other (bilateral leg weakness, Babinski seems to be upgoing on the left. Per this is her baseline.) Back Exam: Normal Inspection. No: CVA Tenderness (R), CVA Tenderness (L) Extremities: Normal Inspection, Normal Range of Motion, Non-Tender, No Pedal Edema Psychiatric: Normal Affect, Normal Mood, Flat Affect Skin Exam: Warm, Dry, Intact, Normal Color, No Rash Course - Vital Signs Last Recorded V/S: Last Vital Signs Temp 35.8 C 10/04/17 18:44 Pulse 65 10/04/17 21:03 Resp 14 10/04/17 21:03 BP 128/55 L 10/04/17 21:03 Pulse Ox 97 10/04/17 21:03 - Orders/Labs/Meds Orders: Active Orders 24 hr Category Date Time Status Cardiac Monitoring [RC] .As Directed Care 10/04/17 18:37 Active Labs: Laboratory Tests 10/04/17 Range/Units 20:36 Urine Color Yellow Urine Appearance Slightly cloudy Urine pH 6.0 (4.5-8.0) Ur Specific [place] 1.015 (1.008-1.030) Urine Protein Negative (NEGATIVE) mg/dL Urine Glucose (UA) Normal (NEGATIVE) mg/dL Urine Ketones Negative (NEGATIVE) mg/dL Urine Occult Blood Moderate (NEGATIVE) Urine Nitrite Negative (NEGATIVE) Urine Bilirubin Negative (NEGATIVE) Urine Urobilinogen Normal (NORMAL) mg/dL Ur Leukocyte Esterase Small (NEGATIVE) Urine RBC 0-5 (0-5) Urine WBC Not seen (0-5) Ur Epithelial Cells Many Amorphous Sediment Not seen Urine Bacteria Few Urine Mucus Not seen Departure - Departure Time of Disposition: 21:05 Disposition: Home, Self-Care 01 Condition: Good Clinical Impression: Altered level of consciousness - Discharge Information Referrals: PCP,None [Primary Care Provider] - Forms: ED Department Discharge - My Orders Last 24 Hours: My Active Orders 10/04/17 18:37 Cardiac Monitoring [RC] .As Directed - Assessment/Plan Last 24 Hours: My Active Orders 10/04/17 18:37 Cardiac Monitoring [RC] .As Directed
[2017-10-04] MEDS ORDERED: Docusate Sodium 100 MG Cap PO PRN (22:41)
[2017-10-04] MEDS ORDERED: Calcitonin (Salmon) Nasal Spray 3.7 ML Bottle NAS PRN (22:41)
[2017-10-04] MEDS ORDERED: Albuterol 0.083% 2.5 MG/3 ML Neb Soln NEB PRN (22:41)
[2017-10-04] MEDS ORDERED: Acetaminophen 500 MG Tab PO PRN (22:41)
[2017-10-04] MEDS ORDERED: Bisacodyl 5 MG Tab PO PRN (22:41)
[2017-10-04] MEDS ORDERED: Morphine 2 MG/ML Syringe IVPUSH PRN (22:41)
[2017-10-04] MEDS ORDERED: oxyCODONE 5 MG Tab PO PRN (22:41)
[2017-10-04] MEDS ORDERED: Albuterol/Ipratropium 3.0-0.5 MG/3 ML Neb Soln NEB PRN (22:41)
[2017-10-04] MEDS ORDERED: Ondansetron 4 MG Tab.DIS PO PRN (22:41)
[2017-10-04] MEDS ORDERED: Acetaminophen 325 MG Tab PO PRN (22:41)
[2017-10-04] MEDS ORDERED: Ondansetron 4 MG/2 ML SDV IV PRN (22:41)
[2017-10-04] MEDS ORDERED: LORazepam 2 MG/ML SDV IV PRN (22:41)
--- NOTE | 2017-10-04 23:26 | PCM.HP ---
H&P History of Present Illness - General Admit Problem/Dx: Admission Diagnosis/Problem Admission Diagnosis/Problem Parkinsonism - History of Present Illness Initial Comments - Free Text/Narative: 77 yo female s/p CVA lives with her . Apparently due to her deficit since her stroke they interviewed recently regarding putting her in [facility]. The says her mental functionality fluctuates considerably from day to day. She often takes a couple minutes to process questions before she answers. She has recently been tx'd for a UTI and is just about done with her antibiotic. Today she took a nap starting at 3 pm for a couple of hrs. At the start of the nap she was at her baseline. When she woke up the describes her as "unresponsive". EMS transported with stable vitals. Now in the ER Gaby is more alert and the feels she is pretty much back to her baseline. Onset: Today Onset Date: 10/04/17, Onset Time: 17:00 (? onset during sleep) Duration: Minutes:, Hour(s): (unknown, less than 4 hrs based on time she fell asleep.) Quality: Reports: Other (no reported pain.) Severity: Moderate Improves with: Mrs. Espinal is now backed to normal. Context: Reports: Other Hx of a fairly large CVA Associated Symptoms: Reports: Confusion, Weakness, decreased LOC no acute finding. reports unable to care for Mrs. Espinal at home. She had assessment for Fdc placement today. She will be going [id number], they just need to select which type of room. denies Pain Score (Numeric/FACES): 0 - Related Data Allergies/Adverse Reactions: Allergies Allergy/AdvReac Type Severity Reaction Status Date / Time amoxicillin Allergy Rash Verified 10/04/17 18:35 cephradine Allergy Rash Verified 10/04/17 18:35 ciprofloxacin [From Cipro] Allergy Other Verified 10/04/17 18:35 Sulfa (Sulfonamide Allergy Fluid Verified 10/04/17 18:35 Antibiotics) Retention Home Medications: Home Meds atorvaSTATin [Lipitor] 20 mg PO DAILY 01/02/17 [History] Aspirin 81 mg PO DAILY tab.chew 01/03/17 [Rx] Metoprolol Succinate [Toprol XL] 50 mg PO DAILY tab.er 01/03/17 [Rx] Cholecalciferol (Vitamin D3) [Vitamin D] 2,000 unit PO DAILY 05/02/17 [History] Omeprazole 20 mg PO BIDAC 05/02/17 [History] Acetaminophen [Tylenol Extra Strength] 1,000 mg PO ASDIRECTED PRN 06/19/17 [ History] Calcitonin ([place]) [Miacalcin Nasal [place]] 1 ml VEENA DAILY PRN 06/19/17 [History ] Cranberry 400 mg PO DAILY 06/19/17 [History] Multivitamin [Multi-Vitamin Daily] 1 each PO DAILY 06/19/17 [History] Nitrofurantoin Gage/Macrocryst [Nitrofurantoin Gage-MCR] 100 mg PO BID 10/04/17 [History] Past Medical History HEENT History: Reports: Impaired Vision, Other (See Below) 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 Cardiovascular History: Reports: High Cholesterol, Hypertension Respiratory History: Reports: None Gastrointestinal History: Reports: Other (See Below) Other Gastrointestinal History: tubular adenoma of colon with mild dyplasia in 05/2011 Genitourinary History: Reports: UTI, Recurrent [employer]OR History: Reports: Musculoskeletal History: Reports: None Other Musculoskeletal History: Compression fx of lumbar vertebra. 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 Psychiatric History: Reports: Dementia Endocrine/Metabolic History: Reports: None Hematologic History: Reports: None Immunologic History: Reports: None Dermatologic History: Reports: None - Infectious Disease History Infectious Disease History: Reports: C-Difficile - Past Surgical History Head Surgeries/Procedures: Reports: None HEENT Surgical History: Reports: Eye Surgery GI Surgical History: Reports: Colonoscopy Female Surgical History: Reports: Hysterectomy, Oophorectomy Oncologic Surgical History: Reports: Other (See Below) Other Oncologic Surgeries/Procedures: tubular adenoma of colon-with mild dyslasia in 05/2011 Social & Family History - Family History Family Medical History: Unobtainable - Tobacco Use Smoking Status *Q: Former Smoker Years of Tobacco use: 30 Packs/Tins Daily: 0.5 Used Tobacco, but Quit: Yes Month/Year Tobacco Last Used: 1988 Second Hand Smoke Exposure: No - Caffeine Use Caffeine Use: Reports: Coffee - Recreational Drug Use Recreational Drug Use: No - Living Situation & Occupation Living situation: Reports: Occupation: Disabled (living with Fernando of 53 years, 5 miles from [place]. 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) H&P Review of Systems - Review of Systems: Review Of Systems: See Below General: Reports: Weakness HEENT: Reports: No Symptoms Pulmonary: Reports: No Symptoms Cardiovascular: Reports: No Symptoms Gastrointestinal: Reports: No Symptoms Genitourinary: Reports: No Symptoms Musculoskeletal: Reports: No Symptoms Skin: Reports: No Symptoms Psychiatric: Reports: No Symptoms Neurological: Reports: Pre-Existing Deficit Hematologic/Lymphatic: Reports: No Symptoms Immunologic: Reports: No Symptoms Exam - Exam Exam: See Below - Vital Signs Vital Signs: Last Vital Signs Temp 35.8 C 10/04/17 18:44 Pulse 68 10/04/17 21:52 Resp 14 10/04/17 21:52 BP 135/49 L 10/04/17 21:52 Pulse Ox 98 10/04/17 21:52 Weight: 70.76 kg - Exam General: Alert, Cooperative, Mild Distress, Other (neat and well groomed. no acute distress. answers in one to two word responds) HEENT: PERRLA, Hearing Intact, Mucosa Moist & [place], Nares Patent, Normal Nasal Septum, Posterior Pharynx Clear, Conjunctiva Clear, EOMI, EACs Clear, TMs Clear Neck: Supple, Trachea Midline, 2 Lungs: Clear to Auscultation, Normal Respiratory Effort Cardiovascular: Regular Rate GI/Abdominal Exam: Normal Bowel Sounds, Soft, Non-Tender, No Organomegaly, No Distention, No Abnormal Bruit, No Mass, Pelvis Stable (Female) Exam: Deferred Rectal (Female) Exam: Deferred Back Exam: Normal Inspection Extremities: Normal Inspection Skin: Warm, Dry, Intact Neurological: Strength Equal Bilateral Neuro Extensive - Mental Status: Alert, Slow Response to Commands (which is at baseline for Mrs. Espinal) Neuro Extensive - Motor, Sensory, Reflexes: Motor/Sensory Deficits (pre-existing ) Psychiatric: Other (flat affect) *Q Meaningful Use (ADM) - VTE *Q VTE Criteria *Q: - Stroke *Q Stroke Criteria *Q: - AMI *Q AMI Criteria *Q: - Problem List (1) Parkinsonism SNOMED Code(s): 42773241 ICD Code: G20 - PARKINSON'S DISEASE Status: Acute Priority: High Current Visit: Yes Qualifiers: Parkinsonism type: unspecified Qualified Code(s): G20 - Parkinson's disease (2) Altered level of consciousness SNOMED Code(s): 0260486 ICD Code: R40.4 - TRANSIENT ALTERATION OF AWARENESS Status: Acute Priority: High Current Visit: Yes (3) History of TIA (transient ischemic attack) and stroke SNOMED Code(s): 578701153, 934741935 ICD Code: Z86.73 - PRSNL HX OF TIA (TIA), AND CEREB INFRC W/O RESID DEFICITS Status: Acute Priority: High Current Visit: Yes (4) Cerebrovascular disease SNOMED Code(s): 25532284 ICD Code: I67.9 - CEREBROVASCULAR DISEASE, UNSPECIFIED Status: Chronic Priority: High Current Visit: Yes Problem List Initiated/Reviewed/Updated: Yes Orders Last 24hrs: Active Orders 24 hr Category Date Time Status Patient Status [ADT] Routine ADT 10/04/17 22:41 Active Intake and Output [RC] QSHIFT Care 10/04/17 22:41 Active Notify Provider Vital Signs [RC] ASDIRECTED Care 10/04/17 22:41 Active Oxygen Therapy [RC] PRN Care 10/04/17 22:41 Active Pulse Oximetry [RC] PRN Care 10/04/17 22:41 Active RT Aerosol Therapy [RC] ASDIRECTED Care 10/04/17 22:41 Active Up With Assistance [RC] ASDIRECTED Care 10/04/17 22:41 Active VTE/DVT Education [RC] Per Unit Routine Care 10/04/17 22:41 Active Vital Signs [RC] Q4H Care 10/04/17 22:41 Active Consult to Case Management [CONS] Routine Cons 10/04/17 22:41 Active Consult to Spiritual Care [CONS] Routine Cons 10/04/17 22:41 Active OT Evaluation and Treatment [CONS] Routine Cons 10/04/17 22:41 Active PT Evaluation and Treatment [CONS] Routine Cons 10/04/17 22:41 Active Regular Diet [DIET] Diet 10/04/17 Breakfast Active BASIC METABOLIC PANEL,BMP [CHEM] AM Lab 10/05/17 05:11 Ordered CBC WITH AUTO DIFF [HEME] AM Lab 10/05/17 05:11 Ordered Acetaminophen [Tylenol Extra Strength] Med 10/04/17 22:41 Active 1,000 mg PO Q6H PRN Acetaminophen [Tylenol] Med 10/04/17 22:41 Active 650 mg PO Q4H PRN Albuterol [Proventil Neb Soln] Med 10/04/17 22:41 Active 2.5 mg NEB Q4H PRN Albuterol/Ipratropium [DuoNeb 3.0-0.5 MG/3 ML] Med 10/04/17 22:41 Active 3 ml NEB QID PRN Aspirin Med 10/05/17 09:00 Active 81 mg PO DAILY Bisacodyl [Dulcolax] Med 10/04/17 22:41 Active 5 mg PO DAILY PRN Calcitonin ([place]) [Miacalcin Nasal [place]] Med 10/04/17 22:41 Active 1 ml VEENA DAILY PRN Cholecalciferol (Vitamin D3) [Vitamin D3] Med 10/05/17 09:00 Active 2,000 units PO DAILY Cranberry [Cranberry] Med 10/05/17 09:00 Pending 400 mg PO DAILY Docusate Sodium [Colace] Med 10/04/17 22:41 Active 100 mg PO BID PRN LORazepam [Ativan] Med 10/04/17 22:41 Active 1 mg IV Q6H PRN Metoprolol Succinate [Toprol XL] Med 10/05/17 09:00 Active 50 mg PO DAILY Morphine Med 10/04/17 22:41 Active 2 mg IVPUSH Q2H PRN Multivitamins w-Iron/Ca/FA/Min [Thera M Plus] Med 10/05/17 09:00 Active 1 tab PO DAILY Ondansetron [Zofran ODT] Med 10/04/17 22:41 Active 4 mg PO Q6H PRN Ondansetron [Zofran] Med 10/04/17 22:41 Active 4 mg IV Q6H PRN Pantoprazole [ProTONIX] Med 10/05/17 07:30 Active 40 mg PO BIDAC Sodium Chloride 0.9% [Normal Saline] 1,000 ml Med 10/04/17 22:41 Active IV ASDIRECTED atorvaSTATin [Lipitor] Med 10/05/17 09:00 Active 20 mg PO DAILY oxyCODONE Med 10/04/17 22:41 Active 5 mg PO Q4H PRN Sequential Compression Device [OM.PC] Per Unit Routine Oth 10/04/17 22:41 Ordered Resuscitation Status Routine Resus Stat 10/04/17 21:59 Ordered Medication Orders Acetaminophen (Tylenol) 650 mg PO Q4H PRN PRN Reason: Pain (Mild 1-3)/fever Acetaminophen (Tylenol Extra Strength) 1,000 mg PO Q6H PRN PRN Reason: Pain Albuterol (Proventil Neb Soln) 2.5 mg NEB Q4H PRN PRN Reason: Shortness Of Breath/wheezing Albuterol/Ipratropium (Duoneb 3.0-0.5 Mg/3 Ml) 3 ml NEB QID PRN PRN Reason: Shortness Of Breath/wheezing Aspirin (Aspirin) 81 mg PO DAILY [facility] Atorvastatin Calcium (Lipitor) 20 mg PO DAILY [facility] Bisacodyl (Dulcolax) 5 mg PO DAILY PRN PRN Reason: Constipation Calcitonin [place] (Miacalcin Nasal [place]) 1 ml VEENA DAILY PRN PRN Reason: Wheezing Cholecalciferol (Vitamin D3) 2,000 units PO DAILY [facility] Docusate Sodium (Colace) 100 mg PO BID PRN PRN Reason: Constipation Sodium Chloride (Normal Saline) 1,000 mls @ 125 mls/hr IV ASDIRECTED [facility] Lorazepam (Ativan) 1 mg IV Q6H PRN PRN Reason: Nausea/Vomiting Metoprolol Succinate (Toprol Xl) 50 mg PO DAILY [facility] Morphine Sulfate (Morphine) 2 mg IVPUSH Q2H PRN PRN Reason: Pain (severe 7-10) Multivitamins/Minerals (Thera M Plus) 1 tab PO DAILY [facility] Non-Formulary Medication (Cranberry [Cranberry]) 400 mg PO DAILY [facility] Ondansetron HCl (Zofran Odt) 4 mg PO Q6H PRN PRN Reason: Nausea able to take PO Ondansetron HCl (Zofran) 4 mg IV Q6H PRN PRN Reason: Nausea/Vomiting Oxycodone HCl (Oxycodone) 5 mg PO Q4H PRN PRN Reason: Pain (moderate 4-6) Pantoprazole Sodium (Protonix) 40 mg PO BIDAC [facility] Assessment/Plan Comment:: ASSESSMENT / PLAN 77 yo female s/p CVA lives with her . Apparently due to her deficit since her stroke they interviewed recently regarding putting her in [facility]. The says her mental functionality fluctuates considerably from day to day. She often takes a couple minutes to process questions before she answers. She has recently been tx'd for a UTI and is just about done with her antibiotic. Today she took a nap starting at 3 pm for a couple of hrs. At the start of the nap she was at her baseline. When she woke up the describes her as "unresponsive". EMS transported with stable vitals. Now in the ER Gaby is more alert and the feels she is pretty much back to her baseline. Onset: Today Onset Date: 10/04/17, Onset Time: 17:00 (? onset during sleep) Duration: Minutes:, Hour(s): (unknown, less than 4 hrs based on time she fell asleep.) Quality: Reports: Other (no reported pain.) Severity: Moderate Improves with: Mrs. Espinal is now backed to normal. Context: Reports: Other Hx of a fairly large CVA Associated Symptoms: Reports: Confusion, Weakness, decreased LOC no acute finding. reports unable to care for Mrs. Espinal at home. She had assessment for Fdc placement today. She will be going to [facility], they just need to select which type of room. Plan -Admit to [address] [place] [address] for further monitoring Parkinson feature, unable to care for self at home hx of CVA, TIA -consult Fdc placement -consult OT and PT -IV fluids for rehydration NS at 100 mL per hour -Advise to notify nurses of any chest pain or other symptoms -And a.m. labs: CBC, BMP Maintenance issues -Orders home meds: order, patient has with her. -Nutrition: Regular diet, thicken all liquids, nectar thick -[place] catheter not indicated at this time -DVT: SCD -GI Prophalaxis; Protonix 40mg po daily -consult Spiritual CODE STATUS: Full Admission status: Admit to Observation -I expect this patient to stay less than 24 hours, not to exceed 96 hours for evaluation and management of this problem. Disposition: Fdc placement Primary Care Provider: Dr. Arnett Hospitalist: Dr. Erwin
[2017-10-04] MEDS: Sodium Chloride 0.9% 1,000 ML IV SCH (23:28)
[2017-10-05] MEDS: Sodium Chloride 0.9% 1,000 ML IV SCH (07:03)
[2017-10-05] MEDS ORDERED: Pantoprazole 40 MG Tab.CR PO SCH (07:30)
[2017-10-05] MEDS: Multivitamins with Iron/Calcium/Folic Acid/Minerals Tab PO SCH (08:22)
[2017-10-05] MEDS: Aspirin 81 MG Tab.Chew PO SCH (08:22)
[2017-10-05] MEDS: Cholecalciferol (Vitamin D3) 1,000 Unit Tab PO SCH (08:22)
[2017-10-05] MEDS ORDERED: atorvaSTATin 20 MG Tab PO SCH (09:00)
[2017-10-05] MEDS ORDERED: Metoprolol Succinate 50 MG Tab.ER PO SCH (09:00)
[2017-10-05] MEDS ORDERED: CRANBERRY PO SCH ×2 (09:00→09:25)
[2017-10-05] MEDS: ATORVASTATIN 20 MG PO SCH (10:14)
[2017-10-05] MEDS: CRANBERRY PO SCH (10:14)
[2017-10-05] MEDS: Metoprolol Succinate 50 MG Tab.ER*POM PO SCH (10:15)
--- NOTE | 2017-10-05 11:55 | PCM.PN ---
- General Info Date of Service: 10/05/17 Functional Status: Reports: Pain Controlled, Tolerating Diet - Review of Systems General: Denies: Fever Pulmonary: Denies: Shortness of Breath Gastrointestinal: Denies: Abdominal Pain Systems Review Comment:: No acute events overnight. Patient reports that she feels well and does not have any shortness of breath or chest pain. Vitals have been stable. No bed available at [facility] today. - Patient Data Vitals - Most Recent: Last Vital Signs Temp 36.4 C 10/05/17 10:24 Pulse 65 10/05/17 10:24 Resp 18 10/05/17 10:24 BP 103/50 L 10/05/17 10:24 Pulse Ox 97 10/05/17 10:24 Weight - Most Recent: 77.791 kg I&O - Last 24 Hours: Intake & Output 10/04/17 10/05/17 10/05/17 22:59 06:59 14:59 Intake Total 1301 Balance 1301 Lab Results Last 24 Hours: Laboratory Results - last 24 hr 10/05/17 10/05/17 Range/Units 05:00 05:00 WBC 7.5 (4.5-11.0) K/uL RBC 3.45 (3.30-5.50) M/uL Hgb 11.1 L D (12.0-15.0) g/dL Hct 34.6 L (36.0-48.0) % MCV 100 H (80-98) fL MCH 32 H (27-31) pg MCHC 32 (32-36) % Plt Count 325 (150-400) K/uL Neut % (Auto) 34 L (36-66) % Lymph % (Auto) 50 H (24-44) % [place] % (Auto) 12 H (2-6) % Eos % (Auto) 4 (2-4) % Baso % (Auto) 1 (0-1) % Sodium 144 (140-148) mmol/L Potassium 3.7 (3.6-5.2) mmol/L Chloride 108 (100-108) mmol/L Carbon Dioxide 27 (21-32) mmol/L Anion Gap 8.8 (5.0-14.0) mmol/L BUN 24 H (7-18) mg/dL Creatinine 0.7 (0.6-1.0) mg/dL Est Cr Clr Drug Dosing 61.52 mL/min Estimated GFR (MDRD) > 60 (>60) Glucose 94 (74-106) mg/dL Calcium 8.3 L (8.5-10.1) mg/dL Med Orders - Current: Current Medications Acetaminophen (Tylenol Extra Strength) 1,000 mg PO Q6H PRN PRN Reason: Pain Albuterol (Proventil Neb Soln) 2.5 mg NEB Q4H PRN PRN Reason: Shortness Of Breath/wheezing Albuterol/Ipratropium (Duoneb 3.0-0.5 Mg/3 Ml) 3 ml NEB QID PRN PRN Reason: Shortness Of Breath/wheezing Aspirin (Aspirin) 81 mg PO DAILY [facility] Last Admin: 10/05/17 08:22 Dose: 81 mg Atorvastatin Calcium (Lipitor) 20 mg PO DAILY [facility] Last Admin: 10/05/17 10:14 Dose: 20 mg Bisacodyl (Dulcolax) 5 mg PO DAILY PRN PRN Reason: Constipation Calcitonin [place] (Miacalcin Nasal [place]) 1 ml VEENA DAILY PRN PRN Reason: Wheezing Cholecalciferol (Vitamin D3) 2,000 units PO DAILY [facility] Last Admin: 10/05/17 08:22 Dose: 2,000 units Docusate Sodium (Colace) 100 mg PO BID PRN PRN Reason: Constipation Lorazepam (Ativan) 1 mg IV Q6H PRN PRN Reason: Nausea/Vomiting Metoprolol Succinate (Toprol Xl) 50 mg PO DAILY [facility] Last Admin: 10/05/17 10:15 Dose: 50 mg Morphine Sulfate (Morphine) 2 mg IVPUSH Q2H PRN PRN Reason: Pain (severe 7-10) Multivitamins/Minerals (Thera M Plus) 1 tab PO DAILY [facility] Last Admin: 10/05/17 08:22 Dose: 1 tab (Cranberry [ Cranberry] 168mg)* Pom* 0 mg PO DAILY [facility] Last Admin: 10/05/17 10:14 Dose: 168 mg Omeprazole 20mg *Pom (*) [facility] Ondansetron HCl (Zofran Odt) 4 mg PO Q6H PRN PRN Reason: Nausea able to take PO Ondansetron HCl (Zofran) 4 mg IV Q6H PRN PRN Reason: Nausea/Vomiting Oxycodone HCl (Oxycodone) 5 mg PO Q4H PRN PRN Reason: Pain (moderate 4-6) Discontinued Medications Acetaminophen (Tylenol) 650 mg PO Q4H PRN PRN Reason: Pain (Mild 1-3)/fever Atorvastatin Calcium (Lipitor) 20 mg PO DAILY [facility] Sodium Chloride (Normal Saline) 1,000 mls @ 125 mls/hr IV ASDIRECTED [facility] Last Admin: 10/05/17 07:03 Dose: 125 mls/hr Metoprolol Succinate (Toprol Xl) 50 mg PO DAILY [facility] Pantoprazole Sodium (Protonix) 40 mg PO BIDAC [facility] Last Admin: 10/05/17 08:31 Dose: 40 mg - Exam Quality Assessment: No: Supplemental Oxygen General: Alert, Oriented, Cooperative, No Acute Distress Neck: Supple Lungs: Normal Respiratory Effort GI/Abdominal Exam: No Distention Extremities: No Pedal Edema Psy/Mental Status: Alert, Normal Affect - Problem List Review Problem List Initiated/Reviewed/Updated: Yes - My Orders Last 24 Hours: My Active Orders 10/05/17 09:39 Convert IV to Saline Lock [OM.PC] Routine - Plan Plan:: ASSESSMENT / PLAN Parkinson features, hx of CVA, TIA, unable to care for self at home - unable to provide safe care at this time. Plan is for assisted living placement but no bed is available today. No evidence for infection or acute problem at this point. -consult Custodial placement -consult OT and PT -Saline lock IV Maintenance issues -Nutrition: Regular diet, thicken all liquids, nectar thick -[place] catheter not indicated at this time -DVT: SCD -GI Prophalaxis; Protonix 40mg po daily -consult Spiritual Admission status: Admit to Observation -I expect this patient to stay less than 24 hours, not to exceed 96 hours for evaluation and management of this problem. Disposition: Anticipate discharge to [facility] tomorrow Primary Care Provider: Dr. Melquiades Erwin M.D.
[2017-10-05] MEDS: OMEPRAZOLE 20 MG PO SCH (16:29)
[2017-10-06] MEDS ORDERED: Dimethicone 20%/Zinc Oxide 25% 56 GM Spray Bottle TOP PRN (04:03)
[2017-10-06] MEDS: CRANBERRY PO SCH (08:15)
[2017-10-06] MEDS: OMEPRAZOLE 20 MG PO SCH (08:15)
[2017-10-06] MEDS: Metoprolol Succinate 50 MG Tab.ER*POM PO SCH (08:16)
[2017-10-06] MEDS: Aspirin 81 MG Tab.Chew PO SCH (08:17)
[2017-10-06] MEDS: ATORVASTATIN 20 MG PO SCH (08:17)
[2017-10-06] MEDS: Multivitamins with Iron/Calcium/Folic Acid/Minerals Tab PO SCH (08:18)
[2017-10-06] MEDS: Cholecalciferol (Vitamin D3) 1,000 Unit Tab PO SCH (08:20)
[2017-10-06 10:57] VITALS: BP 131/57
--- NOTE | 2017-10-06 11:33 | PCM.DCSUM1 ---
Discharge Summary - Hospital Course Brief History: 77-year-old female with Parkinson's syndrome, cerebrovascular disease who presented after an episode of weakness and decreased level of consciousness. She was admitted for observation as her could not care for her at home anymore. - Discharge Data Discharge Date: 10/06/17 Discharge Disposition: Home, [facility] 06 Condition: Good - Discharge Diagnosis/Problem(s) (1) Parkinson's syndrome SNOMED Code(s): 56988662 ICD Code: G20 - PARKINSON'S DISEASE Status: Chronic Current Visit: Yes (2) History of TIA (transient ischemic attack) and stroke SNOMED Code(s): 690566546, 430636915 ICD Code: Z86.73 - PRSNL HX OF TIA (TIA), AND CEREB INFRC W/O RESID DEFICITS Status: Chronic Priority: High Current Visit: Yes (3) Cerebrovascular disease SNOMED Code(s): 83690812 ICD Code: I67.9 - CEREBROVASCULAR DISEASE, UNSPECIFIED Status: Chronic Priority: High Current Visit: Yes - Patient Summary/Data Consults: Consultations 10/04/17 22:41 Consult to Case Management [CONS] Routine Comment: Physician Instructions: Quantity: Reason for Consult: [facility] Placement; [facility] Consult to Spiritual Care [CONS] Routine Special Instructions: daily prayers OT Evaluation and Treatment [CONS] Routine Please Evaluate and Treat. OT Reason for Consult: ADL's Special Instructions: [facility] placement This query below is only for informational purposes and is not editable. PT Evaluation and Treatment [CONS] Routine Please Evaluate and Treat. PT Reason for Consult: Ambulation Special Instructions: [facility] placement This query below is only for informational purposes and is not editable. Hospital Course: Gaby was brought to the emergency room by ambulance after an episode of decreased responsiveness at home. Workup in the emergency room was unremarkable and she was at her baseline throughout the course of the emergency room stay. Her was very concerned about his ability to care for her at home. He had been working to try to get her into an assisted living facility and a bed was thought to be available in the next 1 or 2 days. She was admitted to the hospital for observation. There were no acute issues during her hospital stay. She did not have any fevers and her vital signs were all stable. On the day of discharge she [facility] transported [facility]. She will have physical and occupational therapy. There is no evidence for infection at this time. There were no acute medical issues during the hospital stay. - Patient Instructions Diet: Regular Diet as Tolerated Diet, Other: [place] thick liquids Activity: As Tolerated (up with assistance) Showering/Bathing: May Shower Notify Provider of: Fever, Increased Pain, Nausea and/or Vomiting Other/Special Instructions: 1. You were in the hospital for observation after an episode of weakness at home. There was no evidence for infection. You will be discharged to [facility] with physical and occupational therapy to improve your strength and endurance. 2. Referral to home care for PT and OT to improve strength and endurance. 3. CODE STATUS - full code. 4. Diet will be regular with [place] thick liquids. 5. Please seek medical attention if you develop fever greater than 101, severe shortness of breath or if you develop chest pain/pressure - Discharge Plan Home Medications: Home Meds atorvaSTATin [Lipitor] 40 mg PO BEDTIME 01/02/17 [History] Aspirin 81 mg PO DAILY tab.chew 01/03/17 [Rx] Metoprolol Succinate [Toprol XL] 50 mg PO DAILY tab.er 01/03/17 [Rx] Cholecalciferol (Vitamin D3) [Vitamin D] 2,000 unit PO DAILY 05/02/17 [History] Omeprazole 20 mg PO BIDAC 05/02/17 [History] Acetaminophen [Tylenol Extra Strength] 1,000 mg PO Q6H PRN 06/19/17 [History] Cranberry 400 mg PO DAILY 06/19/17 [History] Multivitamin [Multi-Vitamin Daily] 1 each PO DAILY 06/19/17 [History] Albuterol/Ipratropium [DuoNeb 3.0-0.5 MG/3 ML] 3 ml INH Q4H PRN 10/06/17 [ History] Carbidopa/Levodopa [Sinemet 25-100 mg Tablet] 1.5 tab PO TID 10/06/17 [History] Carboxymethylcellulose Sodium [Lubricant Eye Drops] 1 drop EYEBOTH BEDTIME 10/06 [History] Gluc HCl/Csa/Mateo Hy/Hyalur Ac [Glucosamine Chondroitin] 1 tab PO DAILY [History] Rivastigmine Tartrate [Rivastigmine] 3 mg PO BIDAC 10/06/17 [History] Patient Handouts: Parkinson Disease, Sala-[id number]-Bffe Referrals: Spike Arnett MD [Physician] - (f/u as needed after the hospital stay ) - Discharge Summary/Plan Comment DC Time >30 min.: Yes (40 - d/c to Assisted Living) - Patient Data Vitals - Most Recent: Last Vital Signs Temp 36.4 C 10/06/17 10:56 Pulse 72 10/06/17 10:56 Resp 16 10/06/17 10:56 BP 131/57 L 10/06/17 10:56 Pulse Ox 95 10/06/17 10:56 Weight - Most Recent: 77.791 kg I&O - Last 24 hours: Intake & Output 10/05/17 10/06/17 10/06/17 22:59 06:59 14:59 Intake Total 240 Balance 240 Med Orders - Current: Current Medications Acetaminophen (Tylenol Extra Strength) 1,000 mg PO Q6H PRN PRN Reason: Pain Albuterol (Proventil Neb Soln) 2.5 mg NEB Q4H PRN PRN Reason: Shortness Of Breath/wheezing Albuterol/Ipratropium (Duoneb 3.0-0.5 Mg/3 Ml) 3 ml NEB QID PRN PRN Reason: Shortness Of Breath/wheezing Aspirin (Aspirin) 81 mg PO DAILY [facility] Last Admin: 10/06/17 08:17 Dose: 81 mg Atorvastatin Calcium (Lipitor) 20 mg PO DAILY [facility] Last Admin: 10/06/17 08:17 Dose: 20 mg Bisacodyl (Dulcolax) 5 mg PO DAILY PRN PRN Reason: Constipation Calcitonin Burns (Miacalcin Nasal [place]) 1 ml VEENA DAILY PRN PRN Reason: Wheezing Cholecalciferol (Vitamin D3) 2,000 units PO DAILY [facility] Last Admin: 10/06/17 08:20 Dose: Not Given Dimethicone/Zinc Oxide (Rash Relief-Zinc Oxide Ly[place]ens) 1 gm TOP ASDIRECTED PRN PRN Reason: Rash Docusate Sodium (Colace) 100 mg PO BID PRN PRN Reason: Constipation Last Admin: 10/05/17 18:22 Dose: 100 mg Lorazepam (Ativan) 1 mg IV Q6H PRN PRN Reason: Nausea/Vomiting Metoprolol Succinate (Toprol Xl) 50 mg PO DAILY [facility] Last Admin: 10/06/17 08:16 Dose: 50 mg Multivitamins/Minerals (Thera M Plus) 1 tab PO DAILY [facility] Last Admin: 10/06/17 08:18 Dose: 1 tab (Cranberry [ Cranberry] 168mg)* Pom* 0 mg PO DAILY [facility] Last Admin: 10/06/17 08:15 Dose: 1 mg Omeprazole 20mg *Pom (*) 1 each PO BIDAC [facility] Last Admin: 10/06/17 08:15 Dose: 1 each Ondansetron HCl (Zofran Odt) 4 mg PO Q6H PRN PRN Reason: Nausea able to take PO Ondansetron HCl (Zofran) 4 mg IV Q6H PRN PRN Reason: Nausea/Vomiting Oxycodone HCl (Oxycodone) 5 mg PO Q4H PRN PRN Reason: Pain (moderate 4-6) Discontinued Medications Acetaminophen (Tylenol) 650 mg PO Q4H PRN PRN Reason: Pain (Mild 1-3)/fever Atorvastatin Calcium (Lipitor) 20 mg PO DAILY [facility] Sodium Chloride (Normal Saline) 1,000 mls @ 125 mls/hr IV ASDIRECTED [facility] Last Admin: 10/05/17 07:03 Dose: 125 mls/hr Metoprolol Succinate (Toprol Xl) 50 mg PO DAILY [facility] Morphine Sulfate (Morphine) 2 mg IVPUSH Q2H PRN PRN Reason: Pain (severe 7-10) Pantoprazole Sodium (Protonix) 40 mg PO BIDAC [facility] Last Admin: 10/05/17 08:31 Dose: 40 mg - Exam Quality Assessment: Denies: Supplemental Oxygen General: Reports: Alert, Oriented, Cooperative, No Acute Distress Neck: Reports: Supple Lungs: Reports: Normal Respiratory Effort GI/Abdominal Exam: No Distention Extremities: No Pedal Edema Neurological: Denies: Normal Speech (mild dysarthria) Psy/Mental Status: Reports: Alert, Normal Affect *Q Meaningful Use (DIS) - VTE *Q VTE Criteria *Q: - Stroke *Q Stroke Criteria *Q: - AMI *Q AMI Criteria *Q:
== END 2017-10-06 13:00 | disposition home health service (06) ==
LOC: JP.ED 18:23 → JP.MS 21:57
PROVIDERS: ADMIT Internal Medicine; ATTEND Internal Medicine
DX: G20 Parkinson's disease (principal); H91.92 Unspecified hearing loss, left ear; E78.00 Pure hypercholesterolemia, unspecified; I10 Essential (primary) hypertension; F03.90 Unspecified dementia, unspecified severity, without behavioral disturbance, psychotic disturbance, mood disturbance, and anxiety; Z86.73 Personal history of transient ischemic attack (TIA), and cerebral infarction without residual deficits; Z79.82 Long term (current) use of aspirin; Z79.899 Other long term (current) drug therapy; Z88.1 Allergy status to other antibiotic agents; Z88.8 Allergy status to other drugs, medicaments and biological substances; Z88.2 Allergy status to sulfonamides; Z87.891 Personal history of nicotine dependence
CPT/HCPCS: 36415; 80048; 81001; 85025; 97110; 97162; 97165; 99283; 99285; A9270; J7040; 96360; 96361; G0378

== ENCOUNTER 2019-09-14 15:33 | Inpatient (IN) | payer MEDICARE, BC ==
[2019-09-14] MEDS ORDERED: Albuterol 0.083% 2.5 MG/3 ML Neb Soln ONE (15:53)
[2019-09-14] MEDS ORDERED: Albuterol 0.083% 2.5 MG/3 ML Neb Soln NEB ONE (15:58)
--- NOTE | 2019-09-14 16:18 | EDM.PDOC ---
ED HPI GENERAL MEDICAL PROBLEM - General Chief Complaint: Respiratory Problem Stated Complaint: [facility] Time Seen by Provider: 09/14/19 16:15 Source of Information: Reports: Patient History Limitations: Reports: No Limitations - History of Present Illness INITIAL COMMENTS - FREE TEXT/NARRATIVE: pt was having a blizzard with belinda crakers and fruit pieces in it. She suddenly choked and she has not been able to relax since that time. She looks very red in the face and has sig stridor. Onset: Today, Sudden Duration: Hour(s): Location: Reports: Chest Associated Symptoms: Reports: Cough, Other (pt sounds very stridorous. ) - Related Data Allergies Allergy/AdvReac Type Severity Reaction Status Date / Time amoxicillin Allergy Rash Verified 09/14/19 17:27 cephradine Allergy Rash Verified 09/14/19 17:27 ciprofloxacin [From Cipro] Allergy Other Verified 09/14/19 17:27 Sulfa (Sulfonamide Allergy Fluid Verified 09/14/19 17:27 Antibiotics) Retention Home Meds: Home Meds atorvaSTATin [Lipitor] 20 mg PO BEDTIME 01/02/17 [History] Aspirin 81 mg PO DAILY tab.chew 01/03/17 [Rx] Metoprolol Succinate [Toprol XL] 50 mg PO DAILY tab.er 01/03/17 [Rx] Cholecalciferol (Vitamin D3) [Vitamin D] 2,000 unit PO DAILY 05/02/17 [History] Omeprazole 20 mg PO BIDAC 05/02/17 [History] Acetaminophen [Tylenol Extra Strength] 1,000 mg PO Q6H PRN 06/19/17 [History] Cranberry 400 mg PO DAILY 06/19/17 [History] Multivitamin [Multi-Vitamin Daily] 1 each PO DAILY 06/19/17 [History] Albuterol/Ipratropium [DuoNeb 3.0-0.5 MG/3 ML] 3 ml INH Q4H PRN 10/06/17 [ History] Carboxymethylcellulose Sodium [Lubricant Eye Drops] 1 drop EYEBOTH BEDTIME 10/06 [History] Glucosam/Chond/Collagen/Hyalur [Glucosamine Chondroitin] 1 tab PO DAILY [History] Past Medical History HEENT History: Reports: Impaired Vision, Other (See Below) 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 Cardiovascular History: Reports: High Cholesterol, Hypertension Respiratory History: Reports: None Gastrointestinal History: Reports: Other (See Below) Other Gastrointestinal History: tubular adenoma of colon with mild dyplasia in 05/2011 Genitourinary History: Reports: UTI, Recurrent [employer] History: Reports: Musculoskeletal History: Reports: None Other Musculoskeletal History: Compression fx of lumbar vertebra. 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 Psychiatric History: Reports: Anxiety, Dementia, Depression Endocrine/Metabolic History: Reports: None Hematologic History: Reports: None Immunologic History: Reports: None Dermatologic History: Reports: None - Infectious Disease History Infectious Disease History: Reports: C-Difficile - Past Surgical History Head Surgeries/Procedures: Reports: None HEENT Surgical History: Reports: Eye Surgery GI Surgical History: Reports: Colonoscopy Female Surgical History: Reports: Hysterectomy, Oophorectomy Oncologic Surgical History: Reports: Other (See Below) Other Oncologic Surgeries/Procedures: tubular adenoma of colon-with mild dyslasia in 05/2011 Social & Family History - Family History Family Medical History: Unobtainable - Tobacco Use Smoking Status *Q: Never Smoker - Caffeine Use Caffeine Use: Reports: None - Living Situation & Occupation Living situation: Reports: Occupation: Disabled (living with Fernando of 53 years, 5 miles from [place]. 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 ) Cardiovascular: Reports: No Symptoms Endocrine: Reports: No Symptoms GI/Abdominal: Reports: No Symptoms : Reports: No Symptoms Musculoskeletal: Reports: No Symptoms ED EXAM, GENERAL - Physical Exam Exam: See Below Free Text/Narrative:: pt looks very stressed with resperations. She is very red in the face and sounds stridorous. Exam Limited By: No Limitations General Appearance: Alert, Other (pt has good o2 sats. ) Ears: Normal TMs Nose: Normal Inspection Throat/Mouth: Other ( no foreign body can be seen ) Head: Atraumatic Neck: Normal Inspection Respiratory/Chest: Other (marked stridor present. ) Cardiovascular: Regular Rate, Rhythm GI/Abdominal: Other ( abdoman is very distended. ) (Female) Exam: Deferred Rectal (Female) Exam: Deferred Back Exam: Normal Inspection Extremities: Normal Inspection Neurological: Alert Course - Vital Signs Last Recorded V/S: Last Vital Signs Temp 36.4 C 09/15/19 04:00 Pulse 95 09/15/19 07:20 Resp 19 09/15/19 06:00 BP 151/75 H 09/15/19 06:00 Pulse Ox 94 L 09/15/19 07:20 - Orders/Labs/Meds Orders: Active Orders 24 hr Category Date Time Status Admission Status [Patient Status] [ADT] Routine ADT 09/14/19 19:02 Active Activity as Tolerated [RC] .Routine Care 09/15/19 05:05 Active Ambulate [RC] ASDIRECTED Care 09/15/19 05:10 Active Head of Bed Elevation [RC] CONTINUOUS Care 09/15/19 05:10 Active Pneumonia Education [RC] UPON Care 09/15/19 05:10 Active RT Aerosol Therapy [RC] ASDIRECTED Care 09/14/19 15:58 Active RT Aerosol Therapy [RC] ASDIRECTED Care 09/14/19 17:54 Active RT Incentive Spirometry [RC] Q1HR Care 09/15/19 05:10 Active Turn, Cough, Deep Breathe [RC] Q1HWA Care 09/15/19 05:03 Active Turn, Cough, Deep Breathe [RC] Q1HWA Care 09/15/19 05:10 Active Up to Chair [RC] TIDMEALS Care 09/15/19 05:10 Active Respiratory Care Assess and Treatment [CONS] Routine Cons 09/15/19 05:10 Active Regular Diet [DIET] Diet 09/15/19 Breakfast Active Abdomen 1V Flat [CR] Stat Exams 09/14/19 16:19 Taken CXR [Chest 2V] [CR] Routine Exams 09/15/19 04:58 Taken Chest 1V Frontal [CR] Stat Exams 09/14/19 15:57 Taken CULTURE RESPIRATORY + SMEAR [RM] Routine Lab 09/14/19 17:28 Results Albuterol/Ipratropium [DuoNeb 3.0-0.5 MG/3 ML] Med 09/14/19 21:15 Active 3 ml INH QIDRT Carbidopa/Levodopa [Sinemet 25-100 mg] Med 09/14/19 21:00 Active 1.5 tab PO TID Clindamycin Phosphate [Cleocin] 900 mg Med 09/15/19 00:00 Active Sodium Chloride 0.9% [Normal Saline] 100 ml IV Q8H Dextrose 5%-Lactated Ringers 1,000 ml Med 09/14/19 18:00 Active IV ASDIRECTED Hypromellose [GenTeal Mild to Moderate Ophth Soln] Med 09/14/19 21:00 Active 0 ml EYEBOTH BEDTIME Levofloxacin/Dextrose 5%-Water [Levaquin in D5W 500 MG/ Med 09/15/19 18:00 Active 100 ML] 500 mg Premix Bag 1 bag IV Q24H Metoprolol Succinate [Toprol XL] Med 09/15/19 09:00 Active 50 mg PO DAILY Racepinephrine [S-2 2.25%] Med 09/14/19 18:06 Active 0.5 ml INH Q4H PRN Sodium Chloride 0.9% Med 09/14/19 17:54 Active 3 ml INH ASDIRECTED PRN Oral Care [OM.PC] BID Oth 09/15/19 05:15 Ordered Oral Care [OM.PC] BID Oth 09/16/19 05:15 Ordered SCD [Sequential Compression Device] [OM.PC] Routine Oth 09/15/19 05:04 Ordered Medication Orders Albuterol/Ipratropium (Duoneb 3.0-0.5 Mg/3 Ml) 3 ml INH QIDRT [facility] Last Admin: 09/15/19 07:20 Dose: 3 ml Admin: 09/14/19 21:24 Dose: 3 ml Artificial Tears (Genteal Mild To Moderate Ophth Soln) 0 ml EYEBOTH BEDTIME [facility] Last Admin: 09/14/19 21:23 Dose: 1 drop Carbidopa/Levodopa (Sinemet 25-100 Mg) 1.5 tab PO TID [facility] Last Admin: 09/14/19 21:23 Dose: 1.5 tab Dextrose/Lactated Ringer's (Dextrose 5%-Lactated Ringers) 1,000 mls @ 100 mls/ hr IV ASDIRECTED [facility] Last Admin: 09/15/19 06:36 Dose: 100 mls/hr Infusion: 09/15/19 05:43 Dose: 100 mls/hr Admin: 09/14/19 19:43 Dose: 100 mls/hr Clindamycin Phosphate 900 mg/ (Sodium Chloride) 106 mls @ 212 mls/hr IV Q8H [facility] Last Admin: 09/15/19 00:13 Dose: 212 mls/hr Levofloxacin/Dextrose 500 mg/ (Premix) 100 mls @ 100 mls/hr IV Q24H [facility] Metoprolol Succinate (Toprol Xl) 50 mg PO DAILY [facility] Racepinephrine (S-2 2.25%) 0.5 ml INH Q4H PRN PRN Reason: Shortness of Breath Sodium Chloride (Sodium Chloride 0.9%) 3 ml INH ASDIRECTED PRN PRN Reason: mix with racepinephrine neb Labs: Laboratory Tests 09/14/19 09/14/19 09/15/19 Range/Units 16:13 16:13 05:15 WBC 14.3 H (4.5-11.0) K/uL RBC 4.34 (3.30-5.50) M/uL Hgb 13.9 D (12.0-15.0) g/dL Hct 44.7 (36.0-48.0) % MCV 103 H (80-98) fL MCH 32 H (27-31) pg MCHC 31 L (32-36) % Plt Count 640 H (150-400) K/uL Neut % (Auto) 47 (36-66) % Lymph % (Auto) 40 (24-44) % [place] % (Auto) 9 H (2-6) % Eos % (Auto) 3 (2-4) % Baso % (Auto) 1 (0-1) % Sodium 147 144 (140-148) mmol/L Potassium 4.3 4.0 (3.6-5.2) mmol/L Chloride 108 108 (100-108) mmol/L Carbon Dioxide 23 25 (21-32) mmol/L Anion Gap 16.2 H 11.5 (5.0-14.0) mmol/L BUN 22 H 22 H (7-18) mg/dL Creatinine 0.9 0.7 (0.6-1.0) mg/dL Est Cr Clr Drug Dosing 42.61 54.77 mL/min Estimated GFR (MDRD) > 60 > 60 (>60) Glucose 157 H 165 H (74-106) mg/dL Calcium 9.2 8.6 (8.5-10.1) mg/dL Phosphorus (2.5-4.9) mg/dL Magnesium (1.8-2.4) mg/dL Total Bilirubin 0.3 0.3 (0.2-1.0) mg/dL AST 27 19 (15-37) U/L ALT 37 16 (12-78) U/L Alkaline Phosphatase 91 71 (46-116) U/L Total Protein 8.4 H 6.6 (6.4-8.2) g/dL Albumin 3.8 2.9 L (3.4-5.0) g/dL Globulin 4.6 H 3.7 H (2.3-3.5) g/dL Albumin/Globulin Ratio 0.8 L 0.8 L (1.2-2.2) 09/15/19 09/15/19 Range/Units 05:15 05:15 WBC 10.7 (4.5-11.0) K/uL RBC 3.61 (3.30-5.50) M/uL Hgb 11.5 L D (12.0-15.0) g/dL Hct 36.9 (36.0-48.0) % MCV 102 H (80-98) fL MCH 32 H (27-31) pg MCHC 31 L (32-36) % Plt Count 490 H (150-400) K/uL Neut % (Auto) (36-66) % Lymph % (Auto) (24-44) % [place] % (Auto) (2-6) % Eos % (Auto) (2-4) % Baso % (Auto) (0-1) % Sodium (140-148) mmol/L Potassium (3.6-5.2) mmol/L Chloride (100-108) mmol/L Carbon Dioxide (21-32) mmol/L Anion Gap (5.0-14.0) mmol/L BUN (7-18) mg/dL Creatinine (0.6-1.0) mg/dL Est Cr Clr Drug Dosing mL/min Estimated GFR (MDRD) (>60) Glucose (74-106) mg/dL Calcium (8.5-10.1) mg/dL Phosphorus 2.7 (2.5-4.9) mg/dL Magnesium 1.6 L (1.8-2.4) mg/dL Total Bilirubin (0.2-1.0) mg/dL AST (15-37) U/L ALT (12-78) U/L Alkaline Phosphatase (46-116) U/L Total Protein (6.4-8.2) g/dL Albumin (3.4-5.0) g/dL Globulin (2.3-3.5) g/dL Albumin/Globulin Ratio (1.2-2.2) Meds: Medications Generic Name Dose Route Start Last Admin Trade Name Freq PRN Reason Stop Dose Admin Albuterol/Ipratropium 3 ml 09/14/19 21:15 09/15/19 07:20 Duoneb 3.0-0.5 Mg/3 Ml INH 3 ml QIDRT SWATHI Administration Artificial Tears 0 ml 09/14/19 21:00 09/14/19 21:23 Genteal Mild To Moderate Ophth Soln EYEBOTH 1 drop BEDTIME SWATHI Administration Carbidopa/Levodopa 1.5 tab 09/14/19 21:00 09/14/19 21:23 Sinemet 25-100 Mg PO 1.5 tab TID SWATHI Administration Dextrose/Lactated Ringer's 1,000 mls @ 100 mls/hr 09/14/19 18:00 09/15/19 06: 36 Dextrose 5%-Lactated Ringers IV 100 mls/hr ASDIRECTED SWATHI Administration Clindamycin Phosphate 900 mg/ 106 mls @ 212 mls/hr 09/15/19 00:00 09/15/19 00 :13 Sodium Chloride IV 212 mls/hr Q8H SWATHI Administration Levofloxacin/Dextrose 500 mg/ 100 mls @ 100 mls/hr 09/15/19 18:00 Premix IV Q24H SWATHI Metoprolol Succinate 50 mg 09/15/19 09:00 Toprol Xl PO DAILY SWATHI Racepinephrine 0.5 ml 09/14/19 18:06 S-2 2.25% INH Q4H PRN Shortness of Breath Sodium Chloride 3 ml 09/14/19 17:54 Sodium Chloride 0.9% INH ASDIRECTED PRN mix with racepinephrine neb Discontinued Medications Generic Name Dose Route Start Last Admin Trade Name Freq PRN Reason Stop Dose Admin Albuterol Confirm 09/14/19 15:53 09/14/19 19:20 Proventil Neb Soln Administered 09/14/19 15:54 Not Given Dose 2.5 mg .ROUTE .STK-MED ONE Albuterol 2.5 mg 09/14/19 15:58 09/14/19 16:29 Proventil Neb Soln NEB 09/14/19 15:59 2.5 mg ONETIME ONE Administration Albuterol/Ipratropium Confirm 09/14/19 17:46 09/14/19 18:44 Duoneb 3.0-0.5 Mg/3 Ml Administered 09/14/19 17:47 Not Given Dose 3 ml .ROUTE .STK-MED ONE Albuterol/Ipratropium 3 ml 09/14/19 17:53 09/14/19 17:55 Duoneb 3.0-0.5 Mg/3 Ml NEB 09/14/19 17:54 3 ml ONETIME ONE Administration Albuterol/Ipratropium 3 ml 09/14/19 18:15 09/14/19 19:24 Duoneb 3.0-0.5 Mg/3 Ml INH Not Given Q6H [facility] Dexamethasone Confirm 09/14/19 17:47 Dexamethasone Administered 09/14/19 17:48 Dose 4 mg .ROUTE .STK-MED ONE Dexamethasone 4 mg 09/14/19 18:15 09/14/19 19:24 Dexamethasone IVPUSH 09/14/19 18:16 Not Given ONETIME ONE Fentanyl Confirm 09/14/19 16:40 Sublimaze Administered 09/14/19 16:41 Dose 100 mcg .ROUTE .STK-MED ONE Sodium Chloride 1,000 mls @ 500 mls/hr 09/14/19 16:30 09/14/19 16:29 Normal Saline IV 500 mls/hr ASDIRECTED SWATHI Administration Clindamycin Phosphate 300 mg/ 52 mls @ 150 mls/hr 09/14/19 16:18 09/14/19 16: 28 Sodium Chloride IV 09/14/19 16:38 150 mls/hr ONETIME ONE Administration Levofloxacin/Dextrose 500 mg/ 100 mls @ 100 mls/hr 09/14/19 17:34 09/14/19 17 :45 Premix IV 09/14/19 18:33 100 mls/hr ONETIME ONE Administration Levofloxacin/Dextrose Confirm 09/14/19 17:40 02/22/20 18:05 Levaquin In D5w 500 Mg/100 Ml Administered 09/14/19 17:41 100 mls/hr Dose Administration 100 mls @ as directed IV .STK-MED ONE Levofloxacin/Dextrose 500 mg/ 100 mls @ 100 mls/hr 09/14/19 18:06 Premix IV 09/14/19 19:05 ONETIME ONE Lidocaine HCl Confirm 09/14/19 16:30 09/14/19 17:26 Xylocaine 2% Viscous Administered 09/14/19 16:31 15 ml Dose Administration 15 ml .ROUTE .STK-MED ONE Lidocaine HCl Confirm 09/14/19 16:30 09/14/19 17:30 Xylocaine 4% Top Soln Administered 09/14/19 16:31 50 ml Dose Administration 50 ml .ROUTE .STK-MED ONE Propofol Confirm 09/14/19 16:40 Diprivan 20 Ml Administered 09/14/19 16:41 Dose 200 mg .ROUTE .STK-MED ONE Racepinephrine 0.5 ml 09/14/19 17:54 09/14/19 18:00 S-2 2.25% NEB 09/14/19 17:55 0.5 ml ONETIME ONE Administration Succinylcholine Chloride Confirm 09/14/19 16:40 Quelicin Administered 09/14/19 16:41 Dose 200 mg .ROUTE .STK-MED ONE - Re-Assessments/Exams Free Text/Narrative Re-Assessment/Exam: 09/14/19 16:22 chest xray is not remarkable. Her wbc is elevated. Her o2 sats remain good. Departure - Departure Time of Disposition: 04:00 Disposition: Admitted As Inpatient 67 Condition: Fair Clinical Impression: Foreign body in trachea, Bronchospasm - Discharge Information Sepsis Event Note - Focused Exam Vital Signs: Vital Signs Temp Temp Pulse Resp BP Pulse Ox Pulse Ox 09/15/19 07:20 95 94 L 09/15/19 06:00 19 151/75 H 93 L 09/15/19 04:00 36.4 C 19 132/63 94 L 09/15/19 02:00 24 H 173/85 H 94 L 09/15/19 00:00 36.4 C 20 138/59 L 94 L 09/14/19 22:00 20 138/69 94 L 09/14/19 21:00 19 143/76 H 95 09/14/19 20:00 18 135/72 94 L Date Exam was Performed: 09/15/19 Time Exam was Performed: 07:30 - My Orders Last 24 Hours: My Active Orders 09/14/19 15:57 Chest 1V Frontal [CR] Stat 09/14/19 15:58 RT Aerosol Therapy [RC] ASDIRECTED 09/14/19 16:19 Abdomen 1V Flat [CR] Stat - Assessment/Plan Last 24 Hours: My Active Orders 09/14/19 15:57 Chest 1V Frontal [CR] Stat 09/14/19 15:58 RT Aerosol Therapy [RC] ASDIRECTED 09/14/19 16:19 Abdomen 1V Flat [CR] Stat
[2019-09-14] MEDS ORDERED: Sodium Chloride 0.9% 1,000 ML IV SCH (16:30)
[2019-09-14] MEDS ORDERED: Lidocaine 2% Viscous Solution 15 ML Cup ONE (16:30)
[2019-09-14] MEDS ORDERED: Lidocaine 4% Top Soln 50 ML Bottle ONE (16:30)
[2019-09-14] MEDS ORDERED: Succinylcholine 200 MG/10 ML MDV ONE (16:40)
[2019-09-14] MEDS ORDERED: Propofol 200 MG/20 ML SDV ONE (16:40)
[2019-09-14] MEDS ORDERED: fentaNYL 100 MCG/2 ML SDV ONE (16:40)
[2019-09-14] MEDS ORDERED: Levofloxacin/Dextrose 5%-Water 500 MG in Premix Bag 1 BAG IV ONE ×2 (17:34→18:06)
[2019-09-14] MEDS ORDERED: Levofloxacin/Dextrose 5%-Water 100 ML IV ONE (17:40)
[2019-09-14] MEDS ORDERED: Albuterol/Ipratropium 3.0-0.5 MG/3 ML Neb Soln ONE (17:46)
[2019-09-14] MEDS ORDERED: Dexamethasone 4 MG/ML SDV ONE (17:47)
[2019-09-14] MEDS ORDERED: Albuterol/Ipratropium 3.0-0.5 MG/3 ML Neb Soln NEB ONE (17:53)
[2019-09-14] MEDS ORDERED: Sodium Chloride 0.9% Inhalation Soln 3 ML Neb INH PRN (17:54)
[2019-09-14] MEDS ORDERED: Racepinephrine 2.25% 0.5 ML Neb Soln NEB ONE (17:54)
[2019-09-14] MEDS ORDERED: Dexamethasone 4 MG/ML SDV IVPUSH ONE (18:15)
[2019-09-14] MEDS ORDERED: Albuterol/Ipratropium 3.0-0.5 MG/3 ML Neb Soln INH SCH (18:15)
[2019-09-14] MEDS: Dextrose 5%-Lactated Ringers 1,000 ML IV SCH (19:43)
[2019-09-14] MEDS: Carbidopa/Levodopa 25-100 MG Tab PO SCH (21:23)
[2019-09-14] MEDS: Hypromellose 0.3% Ophth Soln 15 ML Bottle EYEBOTH SCH (21:23)
[2019-09-14] MEDS: Albuterol/Ipratropium 3.0-0.5 MG/3 ML Neb Soln INH SCH (21:24)
[2019-09-15] MEDS: Clindamycin Phosphate 900 MG in Sodium Chloride 0.9% 100 ML IV SCH ×4 (00:13→23:53)
[2019-09-15] MEDS: Dextrose 5%-Lactated Ringers 1,000 ML IV SCH ×2 (06:36→17:16)
[2019-09-15] MEDS: Albuterol/Ipratropium 3.0-0.5 MG/3 ML Neb Soln INH SCH ×4 (07:20→20:22)
[2019-09-15] MEDS: Potassium Phos in 0.9 % NaCl 15 MMOL in Premix Bag 1 BAG IV SCH ×6 (09:55→16:20)
[2019-09-15] MEDS: Magnesium Sulfate/Water 2 GM in Premix Bag 1 BAG IV SCH ×3 (10:10→21:25)
[2019-09-15] MEDS: Metoprolol Succinate 50 MG Tab.ER PO SCH (10:18)
[2019-09-15] MEDS: Carbidopa/Levodopa 25-100 MG Tab PO SCH ×3 (10:19→20:18)
[2019-09-15] MEDS ORDERED: Levofloxacin/Dextrose 5%-Water 500 MG in Premix Bag 1 BAG IV SCH ×4 (18:00)
[2019-09-15] MEDS: Hypromellose 0.3% Ophth Soln 15 ML Bottle EYEBOTH SCH (20:19)
[2019-09-16] MEDS: Racepinephrine 2.25% 0.5 ML Neb Soln INH PRN ×2 (01:19→04:11)
[2019-09-16] MEDS: Magnesium Sulfate/Water 2 GM in Premix Bag 1 BAG IV SCH (03:33)
[2019-09-16] MEDS: Dextrose 5%-Lactated Ringers 1,000 ML IV SCH (05:34)
[2019-09-16] MEDS: Albuterol/Ipratropium 3.0-0.5 MG/3 ML Neb Soln INH SCH (07:02)
[2019-09-16 07:17] VITALS: BP 132/69
[2019-09-16] MEDS: Clindamycin Phosphate 900 MG in Sodium Chloride 0.9% 100 ML IV SCH (07:40)
[2019-09-16] MEDS: Metoprolol Succinate 50 MG Tab.ER PO SCH (08:42)
[2019-09-16 08:43] VITALS: PULSE 70
[2019-09-16] MEDS: Carbidopa/Levodopa 25-100 MG Tab PO SCH (08:43)
--- NOTE | 2019-09-16 09:12 | CR ---
CHEST: Portable 09/14/2019 CLINICAL HISTORY:SOB COMPARISON:None FINDINGS: Study is limited due to points inspiratory level. There is some patchy atelectasis in the right lung base. Heart size is exaggerated. There are atherosclerotic changes in the aorta.. Impression: Limited portable chest with no acute cardiopulmonary process. CHEST: Portable 09/15/2019 at 05 34 COMPARISON:09/14/2019 FINDINGS: The heart size, pulmonary vascular and hilar structures are normal. No infiltrate effusion or pneumothorax is seen. There are atherosclerotic changes in the aorta. IMPRESSION: No acute cardiopulmonary process.
--- NOTE | 2019-09-16 09:14 | CR ---
Abdomen 1V Flat CLINICAL HISTORY: Abdominal distention FINDINGS: No free air is identified. There is moderate gaseous distention of the colon. There is moderate the distention of the sigmoid extending out of the pelvis. Small intestinal configuration is nonacute. IMPRESSION: Significant colonic distention. Particularly, the sigmoid colon extends out of the pelvis into the upper abdomen. Sigmoid volvulus is not excluded.
--- NOTE | 2019-09-16 12:14 | CR ---
CHEST: 2 view 09/15/2019 CLINICAL HISTORY:Aspiration COMPARISON:Portable 09/14/2019 FINDINGS: The heart size, pulmonary vascular and hilar structures are normal. No infiltrate effusion or pneumothorax is seen. There are atherosclerotic changes in the aorta. IMPRESSION: No acute cardiopulmonary process. CHEST: 2 view 09/16/2019 COMPARISON:09/14/2019 FINDINGS: The heart size, pulmonary vascular and hilar structures are normal. No infiltrate effusion or pneumothorax is seen. IMPRESSION: No acute cardiopulmonary process. No significant change from prior study
--- NOTE | 2019-09-16 14:29 | PN ---
DATE OF SERVICE: 09/15/2019 The patient has been afebrile with stable vital signs. Overnight, the stridor she had last evening, now appeared to be resolved. Chest x-ray looks good this morning. At this point, we will keep her one additional day at least to have IV antibiotics for a presumed aspiration event. Otherwise, her magnesium, potassium, and phosphate were marginally low and will be supplemented today. We will call Arminda Lazcano to see if there are any specific dietary limitations that they follow and otherwise resume that diet. Continue the present Levaquin and clindamycin. Lucas Gregorio MD /[id number]
[2019-09-16] MEDS ORDERED: Levofloxacin/Dextrose 5%-Water 750 MG in Premix Bag 1 BAG IV SCH (18:00)
--- NOTE | 2019-09-17 01:59 | DISCH ---
ADMISSION DIAGNOSES: 1. Aspiration of Blizzard with Landen crackers and fruit pieces. 2. Hypercholesterolemia. 3. Hypertension. 4. Brain injury. 5. Cerebrovascular accident. 6. 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 7. Anxiety. 8. Dementia. 9. Depression. DISCHARGE DIAGNOSES: Bronchoscopy with washing and brushing. Date to 09/14/2019. HISTORY OF PRESENT ILLNESS: Gaby Espinal is a 79-year-old female, who was having a Blizzard with Landen crackers in fruit pieces, when she suddenly choked and was not able to relax. She presented to the emergency room by ambulance on 09/14/2019, at 1615. She was taken to the OR for bronchoscopy with washings and was admitted to the hospital, received neb treatments frequently, and she was able to be discharged back to [place], where she resides, on Monday09/16/2019. PHYSICAL EXAMINATION: VITAL SIGNS: Gaby Espinal is a 79-year-old female, height 5 feet 2.99 inches. Weight is 181 pounds. TPR is 98.7, 82, 20. Blood pressure 132/69. HEENT: Negative. NECK: Supple. HEART: Regular rate and rhythm. LUNGS: Reveal stridor and wheezing, which nursing staff states is normal for her. ABDOMEN: Soft and nontender. EXTREMITIES: Without peripheral edema. DISPOSITION: Discharged to previous home to follow up with Dr. Spike Arnett per routine. [facility] visits p.r.n. HOME MEDICATIONS: Doxycycline 100 mg oral b.i.d. for 5 days. To resume home medications of Tylenol Extra Strength 1000 mg every 6 hours p.r.n. pain and fever, DuoNeb 3 mL inhalation every 4 hours p.r.n. wheezing, aspirin 81 mg oral daily, lubricant eye drops 1 drop to each eye at bedtime, vitamin D3 of 2000 International Units daily, cranberry 400 mg oral daily, glucosamine chondroitin 1 tablet oral daily, metoprolol 50 mg oral daily, multivitamin 1 daily, omeprazole 20 mg oral twice daily, and atorvastatin, and Lipitor 20 mg at bedtime. DISCHARGE INSTRUCTIONS: Diet: Resume diet which she received at the longterm, soft, pureed, thickening liquids for dysphagia. Activity: As tolerated. May shower. Notify provider if any fever, increased pain, nausea, vomiting.
--- NOTE | 2019-09-23 13:36 | OR ---
DATE OF PROCEDURE: 09/14/2019 SURGEON: Lucas Gregorio MD PREOPERATIVE DIAGNOSIS: Tracheobronchial aspiration of foreign material. POSTOPERATIVE DIAGNOSIS: Tracheobronchial aspiration of foreign material. PROCEDURE: Flexible bronchoscopy with evacuation of aspirated foreign body material (00441). ANESTHESIA: Topical plus IV sedation. INDICATION FOR PROCEDURE: A 79-year-old female with some long-term problems with swallowing issues and advancing Parkinson's disease, who was having a Blizzard this evening, and she aspirated some of the contents. She presented to the emergency room with stridor and ongoing coughing and was felt to most likely have some retained foreign material within the tracheobronchial tree. Plan is to proceed with flexible bronchoscopy with evacuation of whatever material is evident. Potential risks of the procedure were reviewed with the patient's family, and they wished to proceed. DETAILS OF PROCEDURE: The patient was taken to the operating room and placed in a semi- sitting position. IV sedation was administered, after which some topical anesthesia was placed in the nasal passages and hypopharynx. The bronchoscope was then passed through the left side of the nose, and visualized hypopharynx and larynx were unremarkable. As one passed through the trachea, there was some scattered material. There were some small plaque fragments consistent with some probable chocolate that had been aspirated. The tracheobronchial tree was irrigated with lidocaine solution followed by saline, and all of the foreign material at that point appeared to be satisfactorily removed, and the procedure was then concluded. The patient will be given Levaquin and clindamycin perioperatively, as well as some Decadron in the recovery room, and we will admit her at least overnight for observation to rule out problems with developing a pneumonia. Lucas Gregorio MD /[id number]
== END 2019-09-16 09:56 | DRG 206 ==
LOC: JP.ED 15:33 → JP.SDS 16:23 → JP.ICU 18:41 → JP.SDS 09-15 07:30 → JP.ICU 09-15 07:30 → JP.MS 09-15 12:09
PROVIDERS: ADMIT Surgery; ATTEND Surgery
PROC: 0BC18ZZ Extirpation of Matter from Trachea, Via Natural or Artificial Opening Endoscopic (ICD-10-PCS; principal; 2019-09-14)
DX: T17.428A Food in trachea causing other injury, initial encounter (principal); J98.01 Acute bronchospasm; E78.00 Pure hypercholesterolemia, unspecified; I10 Essential (primary) hypertension; F41.9 Anxiety disorder, unspecified; F03.90 Unspecified dementia, unspecified severity, without behavioral disturbance, psychotic disturbance, mood disturbance, and anxiety; F32.9 Major depressive disorder, single episode, unspecified; I67.1 Cerebral aneurysm, nonruptured; Z86.73 Personal history of transient ischemic attack (TIA), and cerebral infarction without residual deficits; Z88.0 Allergy status to penicillin; Z88.2 Allergy status to sulfonamides; Z88.1 Allergy status to other antibiotic agents; Z79.82 Long term (current) use of aspirin; Z90.710 Acquired absence of both cervix and uterus
CPT/HCPCS: 36415; 71045; 71045-26; 71046; 71046-26; 74018; 74018-26; 80053; 83735; 84100; 85025; 85027; 87070; 87205; 94640; 94762; 99284; A9270-GY; J0330; J1100; J1956; J2704; J3010; J3475; J3490; J7030; J7050; J7121; J7620-GY